=== PATIENT | female | born 1945 | race Caucasian/White ===

== ENCOUNTER 2021-03-11 09:51 | Outpatient (REF) | payer MEDICARE, OTHER, SELFPAY ==
--- NOTE | ~2021-03-11 | MM_ITS ---
EXAMINATION: BONE DENSITOMETRY CLINICAL INDICATION: Screening for osteoporosis. COMPARISON: Previous BD dated 02/28/2019 and baseline BD dated 03/12/2008. TECHNIQUE: Using a [employer] DXA System (software version: 13.1) manufactured by [employer], dual-energy x-ray absorptiometry was performed of the lumbar spine and left hip. The images are of good technical quality. Summary results are attached. FINDINGS: AP SPINE L1-L4: Current: BMD 0.920 g/cm2, Z-score -0.2, T-score -2.2, osteopenia, 1.2% decrease from previous, 8.8% decrease from baseline (<5% change is not significant). Prior: BMD 0.931 g/cm2. Baseline: BMD 1.009 g/cm2. LEFT FEMUR, NECK: Current: BMD 0.730 g/cm2, Z-score -0.1, T-score -2.2, osteopenia. Prior: BMD 0.731 g/cm2. Baseline: BMD 0.748 g/cm2. LEFT FEMUR, TOTAL: Current: BMD 0.752 g/cm2, Z-score -0.1, T-score -2.0, osteopenia, 4.1% decrease from previous, 10.9% decrease from baseline (<5% change is not significant). Prior: BMD 0.784 g/cm2. Baseline: BMD 0.844 g/cm2. IDENTIFIED RISK FACTORS: Menopause, family history (parental hip fracture), history of fracture (adult). HISTORY OF FRACTURE: Other. MEDICATIONS: ERT/SERMS. MM/XR DEXA axial skeleton IMPRESSION: 1. DIAGNOSIS: Osteopenia based on the lowest T-score value of -2.2 in the femoral neck and lumbar spine applying World Health Organization criteria. 2. 10-YEAR FRACTURE RISK PREDICTION, FRAX: Major osteoporotic fracture (clinical spine, forearm, hip or shoulder) 36.7%. Hip fracture 23.1%. 3. Treatment Recommendations: NOF guidelines recommend consideration for treatment in postmenopausal women and men age 50 and older presenting with the following: -A hip or vertebral (clinical or morphometric) fracture. -T-score less than or equal to -2.5 at the femoral neck or spine after appropriate evaluation to exclude secondary causes. -Low bone mass at the hip or spine and a 10-year fracture probability by FRAX of greater than or equal to 3% for hip fracture or greater than or equal to 20% for major osteoporotic fracture based on the [place] adapted WHO algorithm. 4. Other Recommendations: All treatment decisions require clinical judgment and consideration of individual patient factors, including patient preferences, comorbidities, previous drug use, risk factors not captured in the FRAX model (e.g. frailty, falls, vitamin D deficiency, increased bone turnover, interval significant decline in bone density) and possible under or overestimation of fracture risk by FRAX. Additional medical evaluation for secondary cause of low bone mineral density may be appropriate. FUTURE SCAN RECOMMENDATION: People with diagnosed cases of osteoporosis or at high risk for fracture should have regular bone mineral density tests. For patients eligible for Medicare, routine testing is allowed once every 2 years. The testing frequency can be increased to one year for patients who have rapidly progressing disease, those who are receiving or discontinuing medical therapy to restore bone mass, or have additional risk factors.
--- NOTE | ~2021-03-11 | MM_ITS ---
EXAMINATION: MM SCREENING DIGITAL BREAST TOMOSYNTHESIS, BILATERAL CLINICAL INFORMATION: Left lumpectomy for breast cancer, 2007. Due for yearly. COMPARISON: Mammography: 02/28/2019, 02/21/2018, 02/16/2017 TECHNIQUE: Digital breast tomosynthesis is performed in both the craniocaudal and mediolateral oblique views along with computer-aided detection (CAD). Synthesized 2D images are generated from the tomosynthesis. Additional left MLO view is provided. FINDINGS: The breasts are heterogeneously dense, which may obscure small masses (ACR BI-RADS breast composition Category c). Parenchymal pattern is similar to prior studies. There are post therapy changes again noted on the left with mild reduced breast size, stable scarring, and axillary clips, and some dystrophic and punctate calcifications. Neither breast shows interval mass or architectural abnormality. No abnormal calcifications. There is a small stable nodule posterior central right breast on MLO view similar to prior studies, possibly intraparenchymal node. No significant changes. MM/MM tomosynthesis screening BI IMPRESSION: No mammographic evidence of malignancy. ASSESSMENT: BI-RADS 2: Benign RECOMMENDATION: Routine annual mammography screening. This patient's information was entered into a reminder system with a target due date for their next mammogram.
== END 2021-03-11 09:52 | disposition home or self-care (01) ==
LOC: HO.MAMMO 09:51
PROVIDERS: Visit Provider Internal Medicine
DX: Z12.31 Encounter for screening mammogram for malignant neoplasm of breast (principal); Z13.820 Encounter for screening for osteoporosis; M85.80 Other specified disorders of bone density and structure, unspecified site; Z78.0 Asymptomatic menopausal state; Z87.81 Personal history of (healed) traumatic fracture; Z79.899 Other long term (current) drug therapy
CPT/HCPCS: 77063; 77067; 77080

== ENCOUNTER 2022-03-17 10:17 | Outpatient (REF) | payer MEDICARE, SELFPAY ==
--- NOTE | ~2022-03-17 | MM_ITS ---
EXAMINATION: MM SCREENING DIGITAL BREAST TOMOSYNTHESIS, BILATERAL CLINICAL INFORMATION: Screening. Asymptomatic. COMPARISON: Mammography: March 11, 2021 and studies dating back to December 22, 2013 TECHNIQUE: Digital breast tomosynthesis is performed in both the craniocaudal and mediolateral oblique views along with computer-aided detection (CAD). Synthesized 2D images are generated from the tomosynthesis. Left breast exaggerated craniocaudal view also performed. FINDINGS: The breasts are heterogeneously dense, which may obscure small masses (ACR BI-RADS breast composition Category c). There are no new significant masses, abnormal calcifications, or other abnormalities. Patient status post left lumpectomy with associated postsurgical change. MM/MM tomosynthesis screening BI IMPRESSION: No significant changes from prior exam. ASSESSMENT: BI-RADS 2: Benign RECOMMENDATION: Routine annual mammography screening. This patient's information was entered into a reminder system with a target due date for their next mammogram.
== END 2022-03-17 10:18 | disposition home or self-care (01) ==
LOC: HO.MAMMO 10:17
PROVIDERS: PCP Internal Medicine; Visit Provider Internal Medicine
DX: Z12.31 Encounter for screening mammogram for malignant neoplasm of breast (principal)
CPT/HCPCS: 77063; 77067

== ENCOUNTER → 2023-01-04 14:06 | Outpatient (BNV) | payer MEDICARE, SELFPAY | PROVIDERS: PCP Internal Medicine; Visit Provider Internal Medicine Medical Oncology | DX: C50.912 Malignant neoplasm of unspecified site of left female breast (principal); D45 Polycythemia vera; R22.41 Localized swelling, mass and lump, right lower limb | CPT/HCPCS: 99204; 99213 ==

== ENCOUNTER 2023-01-04 15:09 | Outpatient (REF) | payer MEDICARE, SELFPAY ==
--- NOTE | ~2023-01-04 | US_ITS ---
EXAMINATION: US VENOUS ULTRASOUND WITH DOPPLER LOWER EXTREMITY, RIGHT CLINICAL INFORMATION: Right leg DVT COMPARISON: None available. TECHNIQUE: Ultrasound of the deep veins is performed from the hip to the calf with compression sonography and color and pulse Doppler assessment. Spectral analysis with color-flow imaging is performed. FINDINGS: There is normal venous compression and respiratory variation and augmented flow. The visualized common femoral vein, superficial femoral vein, profunda femoral vein, popliteal vein, and the trifurcation region shows no evidence of deep venous thrombosis. Incidentally noted is a 1 x 1.5 x 1 cm avascular well-circumscribed anechoic structure within the popliteal fossa, likely a popliteal cyst. US/US venous duplex LE RT IMPRESSION: No DVT demonstrated in the right lower extremity. Likely small popliteal cyst measuring 1.5 x 1.0 x 1.0 cm.
== END 2023-01-04 15:10 | disposition home or self-care (01) ==
LOC: HO.US 15:09
PROVIDERS: PCP Internal Medicine; Visit Provider Internal Medicine Medical Oncology
DX: I82.401 Acute embolism and thrombosis of unspecified deep veins of right lower extremity (principal)
CPT/HCPCS: 93971

== ENCOUNTER 2023-02-04 11:00 | Outpatient (REF) | payer MEDICARE, SELFPAY ==
--- NOTE | ~2023-02-04 | XR_ITS ---
EXAM: XR knee standing BI, XR knee RT 2V DATE: 02/04/2023 1:10 PM [id number] DICTATED: 02/11/2023 10:20 AM INTERPRETATION LOCATION: Main [place] CLINICAL INDICATION: 77 years old Female with Reason for Exam M25.569 - Pain in unspecified knee COMPARISON: None available TECHNIQUE: AP bilateral weightbearing and lateral, sunrise views of of the right knee FINDINGS: Weightbearing views revealed mild bilateral narrowing of the lateral compartments of knee joints and medial compartment of left knee joint. Lateral view of right knee demonstrate mild suprapatellar fullness and patellar spurring. Findings are consistent with joint effusion . XR/XR knee standing BI IMPRESSION: Mild degenerative changes of the right knee joint with joint effusion.
--- NOTE | ~2023-02-04 | XR_ITS ---
EXAM: XR knee standing BI, XR knee RT 2V DATE: 02/04/2023 1:10 PM [id number] DICTATED: 02/11/2023 10:20 AM INTERPRETATION LOCATION: [facility] [place] CLINICAL INDICATION: 77 years old Female with Reason for Exam M25.569 - Pain in unspecified knee COMPARISON: None available TECHNIQUE: AP bilateral weightbearing and lateral, sunrise views of of the right knee FINDINGS: Weightbearing views revealed mild bilateral narrowing of the lateral compartments of knee joints and medial compartment of left knee joint. Lateral view of right knee demonstrate mild suprapatellar fullness and patellar spurring. Findings are consistent with joint effusion . XR/XR knee RT 2V IMPRESSION: Mild degenerative changes of the right knee joint with joint effusion.
== END 2023-02-04 11:01 | disposition home or self-care (01) ==
LOC: HO.HOSX 11:00
PROVIDERS: Visit Provider Orthopaedic Surgery
DX: M25.561 Pain in right knee (principal); R60.0 Localized edema; M71.20 Synovial cyst of popliteal space [Baker], unspecified knee
CPT/HCPCS: 73560; 73565; 99202

== ENCOUNTER 2023-02-04 13:09 | Outpatient (AMB) | payer MEDICARE, SELFPAY ==
[2023-02-04 13:19] VITALS: BMI 28.3
--- NOTE | 2023-02-04 13:19 | MHC.OFFVIS ---
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 Patient reports that she has had ongoing pain in the right knee since the beginning of November. She woke up one morning with her right great toe throbbing and was seen with an emergency appt with Dr. Johns who gave ABX due to infection and ulceration. She will be following up with him in regards to this. She reports that she was improving after about 2 weeks of abx until she notices that she had significant swelling , she was given compression stocking and advised to rest. She was then sent for an US to rule out DVT, negative DVT but a bakers cyst was found. Currently she finds pain while walking but has gotten better over time. 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 She complains of pain and swelling in her right knee, which has been present for the last few weeks. She says her compression stockings are uncomfortable around her knee. She says her swelling began after resting with her leg elevated due to her toe infection. She says she remains active with swimming and water exercises. She was sent for an US which ruled out DVT. She was seen in the ED at the beginning of November for an infection to her right great toe. She was seen by Dr. Johns and given Abx, and is following with him concerning her foot. She says she has a Hx of a meniscus repair surgery to her right knee a few years ago, at an outside clinic. She says she has Polycythemia?[facility] Medical History Breast CA Leg swelling Surgical History History of lumpectomy Family History Maternal Aunt Breast cancer Maternal Aunt Bone cancer Breast cancer Social History Household Members: Spouse Patient Tobacco Use Status: Never used Tobacco service: No Current occupational status: retired Review of Systems Const All systems reviewed & are unremarkable except as noted in HPI and below Physical Exam Vital Signs: BMI result Body Mass Index 28.3 Const General: no acute distress, alert and awake Orientation/consciousness: patient oriented x3 HEENT Head: Yes normocephalic and Yes atraumatic Eyes EOM: EOMs intact bilaterally Resp Effort & Inspection: normal respiratory effort and able to speak in complete sentences Cardio Jugular venous distension: no JVD Skin General skin exam: turgor normal Rashes: no rashes Neuro General: patient oriented x3 Extrem Other: Right Le+ pitting edema RLE Mild discomfort No erythema Small coronado's cyst Full ROM No JLT Psych Appearance: grossly normal Affect: normal affect Attitude: cooperative Results Reviewed Results Reviewed: I personally reviewed relevant radiographs. Mild bilateral knee OA Assessment & Plan Assessment & Plan (1) Leg edema, right: Code(s): R60.0 - Localized edema Plan: This is a 77 year old woman with right leg edema, negatiuve for DVT. She has pain and swelling in her knee for ~2 months. She has been wearing compression stockings, which helps her somewhat, and has tried to remain active with walking, swimming, and water exercises. I discussed her diagnosis and treatment options. No knee intervention warranted. I recommend she continue to be as active as tolerated, and resume wearing her compression stockings. She can follow up prn. Plan Scribed for Anatoly Bennett MD by Gustavo Miller, medical doctor md, on 02/04/23 at 1:30 PM, EST. Orders: Orders XR knee RT 2V Today M25.569 - Pain in unspecified knee XR knee standing BI Today M25.569 - Pain in unspecified knee Coding Level of Care Code New Pt Level 3 (22399) Diagnoses Leg edema, right R60.0
== END 2023-02-04 16:29 | disposition home or self-care (01) ==
PROVIDERS: PCP Internal Medicine; Visit Provider Orthopaedic Surgery
DX: M25.561 Pain in right knee (principal); R60.0 Localized edema
CPT/HCPCS: 99203

== ENCOUNTER 2023-03-19 09:27 | Outpatient (REF) | payer MEDICARE, SELFPAY ==
--- NOTE | ~2023-03-19 | MM_ITS ---
EXAMINATION: BONE DENSITOMETRY CLINICAL INDICATION: Asymptomatic menopausal state. COMPARISON: Previous BD dated 03/11/2021 and baseline BD dated 03/12/2008. TECHNIQUE: Using a [employer] DXA System (software version: 13.1) manufactured by [employer], dual-energy x-ray absorptiometry was performed of the lumbar spine and left hip. The images are of good technical quality. Summary results are attached. FINDINGS: LEFT FEMUR, NECK: Current: BMD 0.734 g/cm2, Z-score -0.2, T-score -2.2, osteopenia. Prior: BMD 0.730 g/cm2. Baseline: BMD 0.748 g/cm2. LEFT FEMUR, TOTAL: Current: BMD 0.747 g/cm2, Z-score -0.2, T-score -2.1, osteopenia, 0.7% decrease from previous, 11.5% decrease from baseline (<5% change is not significant). Prior: BMD 0.752 g/cm2. Baseline: BMD 0.844 g/cm2. AP SPINE L1-L4: Current: BMD 0.875 g/cm2, Z-score -0.7, T-score -2.5, osteoporosis, 4.9% decrease from previous, 13.3% decrease from baseline (<5% change is not significant). Prior: BMD 0.920 g/cm2. Baseline: BMD 1.009 g/cm2. IDENTIFIED RISK FACTORS: Menopause, family history (parental hip fracture), history of fracture (adult). HISTORY OF FRACTURE: Other. MEDICATIONS: Calcium supplements or multivitamin, vitamin D. MM/XR DEXA axial skeleton IMPRESSION: 1. DIAGNOSIS: Osteoporosis based on the lowest T-score value of -2.5 in the lumbar spine applying World Health Organization criteria. 2. 10-YEAR FRACTURE RISK PREDICTION, FRAX: According to the guidelines, FRAX calculation should only be performed on patients in the osteopenia bone density category. Therefore, FRAX was not performed on this patient. 3. Treatment Recommendations: NOF guidelines recommend consideration for treatment in postmenopausal women and men age 50 and older presenting with the following: -A hip or vertebral (clinical or morphometric) fracture. -T-score less than or equal to -2.5 at the femoral neck or spine after appropriate evaluation to exclude secondary causes. -Low bone mass at the hip or spine and a 10-year fracture probability by FRAX of greater than or equal to 3% for hip fracture or greater than or equal to 20% for major osteoporotic fracture based on the [place] adapted WHO algorithm. 4. Other Recommendations: All treatment decisions require clinical judgment and consideration of individual patient factors, including patient preferences, comorbidities, previous drug use, risk factors not captured in the FRAX model (e.g. frailty, falls, vitamin D deficiency, increased bone turnover, interval significant decline in bone density) and possible under or overestimation of fracture risk by FRAX. Additional medical evaluation for secondary cause of low bone mineral density may be appropriate. FUTURE SCAN RECOMMENDATION: People with diagnosed cases of osteoporosis or at high risk for fracture should have regular bone mineral density tests. For patients eligible for Medicare, routine testing is allowed once every 2 years. The testing frequency can be increased to one year for patients who have rapidly progressing disease, those who are receiving or discontinuing medical therapy to restore bone mass, or have additional risk factors.
--- NOTE | ~2023-03-19 | MM_ITS ---
EXAMINATION: MM SCREENING DIGITAL BREAST TOMOSYNTHESIS, BILATERAL CLINICAL INFORMATION: Screening. Asymptomatic. COMPARISON: Mammography: This study is compared with prior exams dating back to 2017. TECHNIQUE: Digital breast tomosynthesis is performed in both the craniocaudal and mediolateral oblique views along with computer-aided detection (CAD). Synthesized 2D images are generated from the tomosynthesis. FINDINGS: The breasts are heterogeneously dense, which may obscure small masses (ACR BI-RADS breast composition Category c). There are no significant masses, abnormal calcifications, or other abnormalities. There are postsurgical changes of the upper outer quadrant and unchanged, benign calcifications in the superior aspect of the left breast. These findings are related to prior breast cancer treatment. MM/MM tomosynthesis screening BI IMPRESSION: No mammographic evidence of malignancy. ASSESSMENT: BI-RADS BI-RADS 2 - Benign Findings RECOMMENDATION: Routine annual mammography screening. 1 year F/U This examination should not preclude the clinical evaluation of a suspicious palpable abnormality. This patient's information was entered into a reminder system with a target due date for their next mammogram.
== END 2023-03-19 09:28 | disposition home or self-care (01) ==
LOC: HO.MAMMO 09:27
PROVIDERS: PCP Internal Medicine; Visit Provider Internal Medicine
DX: Z12.31 Encounter for screening mammogram for malignant neoplasm of breast (principal); Z13.820 Encounter for screening for osteoporosis; Z78.0 Asymptomatic menopausal state
CPT/HCPCS: 77063; 77067; 77080

== ENCOUNTER → 2023-03-19 09:45 | Outpatient (BNV) | payer MEDICARE, SELFPAY | PROVIDERS: PCP Internal Medicine; Visit Provider Radiology Diagnostic Radiology | DX: N95.1 Menopausal and female climacteric states (principal) | CPT/HCPCS: 77063; 77067; 77080 ==

== ENCOUNTER 2023-04-15 10:12 | Outpatient (REF) | payer MEDICARE, SELFPAY ==
[2023-04-15 13:21] LABS: MANUAL DIFF FLAG NO
[2023-04-15 13:26] LABS: Basophils Percent Auto 0.5 % (0-2); Eosinophils Absolute Auto 0.2 X10*3/uL (0.0-0.4); Eosinophils Percent Auto 2.5 % (0-4); Hematocrit 41.1 % (37.0-47.0); Hemoglobin 13.3 g/dl (12.0-16.0); Imm Gran Abs Auto 0.02 X10*3/uL (0.00-0.03); Imm Gran Pct Auto 0.3 % (0.0-0.4); Lymphocytes Absolute Auto 1.3 X10*3/uL (1.2-4.9); Lymphocytes Percent Auto 20.3 % (20-40); Mean Corpuscular HGB Conc 32.4 g/dl (31.0-35.0); Mean Corpuscular Hemoglobin 29.2 pg (27.0-33.0); Mean Corpuscular Volume 90.3 fL (80.0-98.0); Monocytes Absolute Auto 0.5 X10*3/uL (0.1-1.2); Neutrophils Absolute Auto 4.5 x10*3/uL (2.0-8.3); Neutrophils Percent Auto 69.4 % (45-73); Platelet Count 276 X10*3/uL (160-400); Red Blood Count 4.55 X10*6/uL (4.20-5.50); Red Cell Distribution Width 12.6 % (11.0-16.0); White Blood Count 6.5 X10*3/uL (4.8-10.8)
[2023-04-15 14:01] LABS: Alanine Aminotransferase 24 U/L (0-31); Alkaline Phosphatase 111 U/L (39-117); Anion Gap 14 (12-20); Aspartate Amino Transferase 30 U/L (5-31); Bilirubin Total 0.6 mg/dL (0.0-1.0); Blood Urea Nitrogen 14 mg/dL (9-16); Calcium 9.5 mg/dL (8.4-10.2); Carbon Dioxide 25 mmol/L (22-29); Chloride 107 mmol/L (96-108); Estimated Glomerular Filt Rate > 60; Glucose Random 93 mg/dL (60-115); Potassium 4.3 mmol/L (3.3-5.1); Sodium 142 mmol/L (135-145)
[2023-04-17 08:39] LABS: CA 27.29 53 U/mL (<38)
== END 2023-04-15 10:13 | disposition home or self-care (01) ==
LOC: HO.HMGCLDS 10:12
PROVIDERS: PCP Internal Medicine; Visit Provider Internal Medicine Medical Oncology
DX: C50.919 Malignant neoplasm of unspecified site of unspecified female breast (principal)
CPT/HCPCS: 36415; 80053; 85025; 86300

== ENCOUNTER 2023-05-12 13:28 | Outpatient (REF) | payer MEDICARE, SELFPAY ==
--- NOTE | ~2023-05-12 | XR_ITS ---
EXAMINATION: XR LUMBOSACRAL SPINE CLINICAL INFORMATION: Reason for Exam LOW BACK PAIN RADIATING TO LEFT LEG. COMPARISON: None TECHNIQUE: 3 views of the lumbar spine FINDINGS: 5 nonrib-bearing lumbar-type vertebral bodies. Vertebral body heights are maintained. Alignment is maintained. Mild multilevel degenerative disc disease with loss of disc space height and facet arthropathy. Atherosclerotic calcifications of the abdominal aorta. XR/XR lumbar spine 2-3V IMPRESSION: Mild multilevel degenerative disc disease with loss of disc space height and facet arthropathy.
== END 2023-05-12 13:29 | disposition home or self-care (01) ==
LOC: HO.HMGCX 13:28
PROVIDERS: PCP Internal Medicine; Visit Provider Internal Medicine
DX: M54.50 Low back pain, unspecified (principal)
CPT/HCPCS: 72100

== ENCOUNTER 2023-09-21 14:43 | Outpatient (AMB) | payer MEDICARE, SELFPAY ==
[2023-09-21 14:50] VITALS: BP 140/68; PULSE 84; BMI 30.8
--- NOTE | 2023-09-21 14:50 | MHC.OFFVIS ---
Intake Vital Signs 09/21/23 14:50 Height 5 ft 1 in Weight 163 lb BMI 30.8 BP 140/68 H Blood Pressure Location Rt brachial Position Sitting Pulse 84 Intake Visit Reasons: Lg abscess above lip, possible I&D Intake Note: Patient here for non healing lesion on Lt upper lip. Started off as a small red pimple. Irritated for 4-5 days. No hx of skin ca. 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 Accompanied by: Self / Same As Patient Allergies No Known Allergies Allergy (Unverified 09/21/23 14:51) Medication List - Last Reconciled 09/21/23 by Topher Mariscal MD amlodipine 10 mg PO DAILY aspirin 81 mg PO DAILY atorvastatin 80 mg PO DAILY calcium 26-vit D3-magnesium 15 167 mg calcium- 1.67 mcg-83 mg 167 caps PO DAILY diazepam (Valium) 5 mg PO BEDTIME PRN loratadine (Claritin) 10 mg PO DAILY PRN oxybutynin chloride ER 10 mg PO DAILY HPI HPI Comments History of Present Illness Details Patient presents with a 5 day history of what was described as a pimple to a necrotic inflamed area involving her left upper lip. She has never had any problem lesion here before. She has no history of any skin cancers. Patient was seen by her medical doctor and presents here for further evaluation. Chart was reviewed and patient evaluated [facility] Medical History Breast CA Leg swelling Surgical History History of lumpectomy Family History Maternal Aunt Breast cancer Maternal Aunt Bone cancer Breast cancer Social History Household Members: Spouse Patient Tobacco Use Status: Never used Tobacco service: No Current occupational status: retired Physical Exam Vital Signs: Last Vital Signs Pulse 84 09/21/23 14:50 BP 140/68 H 09/21/23 14:50 BMI result Body Mass Index 30.8 Neck Other: Patient has approximately 2 x 1 cm eschar Bard carbuncle type process involving her left mid upper lip. Intraoral exam demonstrated no obvious pathology. No obvious cervical periclavicular adenopathy demonstrated. Assessment & Plan Assessment & Plan (1) Carbuncle and furuncle of face: Code(s): L02.03 - Carbuncle of face; L02.02 - Furuncle of face Plan The present time, we will treat the patient conservatively as this is according to her uneventfully 5 days. She has been given local instructions including bacitracin, she will be given script for antibiotics, analgesics suggestions, local wound care, and will see me in few days time for follow-up or p.r.n.. Should this process progress or worsen during this interim, she has been instructed to contact the office or go to the ER. Medications: New cephalexin 500 mg PO TID 30 caps 0RF Coding Level of Care Code New Pt Level 4 (57484) Diagnoses Carbuncle and furuncle of face L02.03; L02.02
== END 2023-09-21 15:01 | disposition home or self-care (01) ==
PROVIDERS: PCP Internal Medicine; Referring Provider Internal Medicine; Visit Provider Surgery
DX: L02.03 Carbuncle of face (principal); L02.02 Furuncle of face
CPT/HCPCS: 99204

== ENCOUNTER → 2023-09-21 14:43 | Outpatient (BNVA) | payer MEDICARE, SELFPAY | PROVIDERS: PCP Internal Medicine; Referring Provider Internal Medicine; Visit Provider Surgery | DX: L02.03 Carbuncle of face (principal); L02.02 Furuncle of face | CPT/HCPCS: 99202 ==

== ENCOUNTER 2023-09-27 08:35 | Outpatient (AMB) | payer MEDICARE, SELFPAY ==
--- NOTE | 2023-09-27 08:41 | A.OFFVIS_ITS ---
Intake Vital Signs 09/27/23 08:45 Height 5 ft 1 in Weight 161 lb BMI 30.4 BP 118/66 Blood Pressure Location Rt brachial Position Sitting Pulse 79 Intake Visit Reasons: 1wk f/u lesion Lt upper lip Intake Note: Patient here for 1wk f/u non healing lesion on Lt upper lip. Patient using Bacitracin samples. Patient c/o: scab, painful. No hx of skin ca.Has 3-4 days of cephalexin course. 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 She has completing her antibiotic course. He has been undergoing bacitracin to the wound. She has had some occasional drainage of clear fluid but no pus. [facility] Medical History Breast CA Leg swelling Surgical History History of lumpectomy Family History Maternal Aunt Breast cancer Maternal Aunt Bone cancer Breast cancer Social History Household Members: Spouse Patient Tobacco Use Status: Never used Tobacco service: No Current occupational status: retired Physical Exam Vital Signs: Last Vital Signs Pulse 79 09/27/23 08:45 BP 118/66 09/27/23 08:45 BMI result Body Mass Index 30.4 HEENT Other: Wound is essentially status quo. My concern is that this is an underlying neoplastic process, basal cell carcinoma. Assessment & Plan Assessment & Plan (1) Carbuncle and furuncle of face: Code(s): L02.03 - Carbuncle of face; L02.02 - Furuncle of face Plan Current plan because of the anatomic location is to arrange for plastic surgical evaluation for further evaluation and possible excision. Arrangements will be made for this. All questions answered. Coding Level of Care Code Est Pt Level 4 (44418) Diagnoses Carbuncle and furuncle of face L02.03; L02.02
[2023-09-27 08:45] VITALS: BP 118/66; PULSE 79; BMI 30.4
== END 2023-09-27 08:59 | disposition home or self-care (01) ==
PROVIDERS: PCP Internal Medicine; Visit Provider Surgery
DX: L02.03 Carbuncle of face (principal); L02.02 Furuncle of face
CPT/HCPCS: 99214

== ENCOUNTER → 2023-09-27 08:35 | Outpatient (BNVA) | payer MEDICARE, SELFPAY | PROVIDERS: PCP Internal Medicine; Visit Provider Surgery | DX: L02.03 Carbuncle of face (principal); L02.02 Furuncle of face | CPT/HCPCS: 99212 ==

== ENCOUNTER 2024-03-24 09:23 | Outpatient (REF) | payer MEDICARE, SELFPAY ==
--- NOTE | ~2024-03-24 | MM_ITS ---
EXAMINATION: MM SCREENING DIGITAL BREAST TOMOSYNTHESIS, BILATERAL CLINICAL INFORMATION: Screening. Asymptomatic. COMPARISON: Mammography: Comparison is made with available prior examinations. TECHNIQUE: Digital breast tomosynthesis is performed in both the craniocaudal and mediolateral oblique views along with computer-aided detection (CAD). Synthesized 2D images are generated from the tomosynthesis. FINDINGS: The breasts are heterogeneously dense, which may obscure small masses (ACR BI-RADS breast composition Category c). Left postsurgical changes are stable. There are no significant masses, abnormal calcifications, or other abnormalities. MM/MM tomosynthesis screening BI IMPRESSION: No mammographic evidence of malignancy. ASSESSMENT: BI-RADS BI-RADS 2 - Benign Findings RECOMMENDATION: Routine annual mammography screening. 1 year F/U This examination should not preclude the clinical evaluation of a suspicious palpable abnormality. This patient's information was entered into a reminder system with a target due date for their next mammogram. Electronically signed by: Jo Ann Main DO 04/06/2024 06:46 PM EDT
== END 2024-03-24 09:24 | disposition home or self-care (01) ==
LOC: HO.MAMMO 09:23
PROVIDERS: PCP Internal Medicine; Visit Provider Internal Medicine
DX: Z12.31 Encounter for screening mammogram for malignant neoplasm of breast (principal)
CPT/HCPCS: 77063; 77067

== ENCOUNTER → 2024-03-24 09:45 | Outpatient (BNV) | payer MEDICARE, SELFPAY | PROVIDERS: PCP Internal Medicine; Visit Provider Internal Medicine | DX: Z12.31 Encounter for screening mammogram for malignant neoplasm of breast (principal) | CPT/HCPCS: 77063; 77067 ==

== ENCOUNTER 2024-11-22 09:02 | Outpatient (REF) | payer MEDICARE, SELFPAY ==
--- OUTSIDE RECORDS SUMMARY | 2024-11-22 09:33 | XMS_ITS | Patient Health Record ---
[facility] [place] Address [address] [facility] [place] [address] Care Team Providers Care Software Systems Analyst Name Role Phone Nikko Perrin MD Primary Care Provider Unavailab Nasreen Muniz Unavailable [phone] Asher Zimmerman Unavailable [phone] Allergies No Known Allergies Reason For Referral No Information Medications Medication SIG (Take, Route, Frequency, Duration) Notes Start Date End Date Status Ciclopirox Olamine 0.77 % 1 application to affected area Externally Twice a day to effected areas on feet for 30 days Active Tolterodine Tartrate once a day Active Flonase PRN Active Atorvastatin Calcium 80 MG 1 tablet Orally Once a day for 30 day(s) Active Aspirin 81 MG 1 tablet Orally Once a day Active Valium 5 MG 1 tablet as needed Orally Once a day Active Tussin Cough PRN Active Ammonium Lactate 12 % 1 application Externally to affected areas of dry skin to feet except for between the toes Twice a day for 30 days Active oxyBUTYnin Chloride ER 10 MG 1 tablet Orally Once a day for 30 day(s) Active Social History Tobacco Use: Social History Observation Description Date Details (start date - stop date) Never Smoker NA - NA Tobacco use other than smoking: Question Answer Notes Are you an other tobacco user? No Tobacco Control (Standard) Question Answer Notes Tobacco use: Nonsmoker Additional Findings: Tobacco non-user Current no nsmoker AUDIT-C (Standard) Question Answer Notes Did you have a drink containing alcohol in the p ast year? No Points 0 Interpretation Negative Vital Signs Blood pressure diastolic 80 mm Hg 11/09/2024 Height 5 ft 2 in in 11/09/2024 Blood pressure systolic 120 mm Hg 11/09/2024 Weight 156 lbs 11/09/2024 BMI 28.53 kg/m2 11/09/2024 Procedures Procedure Date Ordered Date Performed Result Body Sit e 56666-WWAPCSE NAIL, 6 OR MORE 07/05/2024 N/A 53852-UISOVFZ NAIL, OR MORE 11/09/2024 N/A Encounters Encounter Location Date Provider Diagnosis [address] [address] 01/06/2024 Asher Zimmerman Pain in right toe(s) M79.674 ; Hallux valgus (acquired), right foot M20.11 ; Other hammer toe(s) (acquired), right foot M20.41 ; Localized edema R60.0 ; Tinea unguium B35.1 ; Pain in left toe(s) M79.675 ; Tinea pedis B35.3 ; Tailor's bunionette, left M21.622 and Tailor's bunionette, right M21.[address] [address] 03/30/2024 Asher Zimmerman Pain in right toe(s) M79.674 ; Hallux valgus (acquired), right foot M20.11 ; Other hammer toe(s) (acquired), right foot M20.41 ; Localized edema R60.0 ; Tinea unguium B35.1 ; Pain in left toe(s) M79.675 ; Tinea pedis B35.3 ; Tailor's bunionette, left M21.622 and Tailor's bunionette, right M21.[address] [address] 07/05/2024 Nasreen Levy Xerosis of skin L85.3 ; Tinea unguium B35.1 ; Pain in right toe(s) M79.674 and Pain in left toe(s) M79.[address] [address] 11/09/2024 Nasreen Levy Pain in right toe(s) M79.674 ; Onychomycosis B35.1 and Pain in left toe(s) M79.675 Assessments Encounter Date Diagnosis (ICD Code) Assessment Notes Treatment Notes Treatment Clinical Notes Section Notes 01/06/2024 Hallux valgus (acquired), right foot (ICD-10 - M20.11) 01/06/2024 Pain in right toe(s) (ICD-10 - M79.674) 03/30/2024 Hallux valgus (acquired), right foot (ICD-10 - M20.11) 03/30/2024 Pain in right toe(s) (ICD-10 - M79.674) 07/05/2024 Xerosis of skin (ICD-10 - L85.3) 11/09/2024 Pain in right toe(s) (ICD-10 - M79.674) 11/09/2024 Onychomycosis (ICD-10 - B35.1) 07/05/2024 Tinea unguium (ICD-10 - B35.1) 03/30/2024 Other hammer toe(s) (acquired), right foot (ICD-10 - M20.41) 01/06/2024 Other hammer toe(s) (acquired), right foot (ICD-10 - M20.41) 01/06/2024 Localized edema (ICD-10 - R60.0) 07/05/2024 Pain in right toe(s) (ICD-10 - M79.674) 11/09/2024 Pain in left toe(s) (ICD-10 - M79.675) 03/30/2024 Localized edema (ICD-10 - R60.0) 07/05/2024 Pain in left toe(s) (ICD-10 - M79.675) 03/30/2024 Tinea unguium (ICD-10 - B35.1) 01/06/2024 Tinea unguium (ICD-10 - B35.1) 01/06/2024 Pain in left toe(s) (ICD-10 - M79.675) 03/30/2024 Pain in left toe(s) (ICD-10 - M79.675) 03/30/2024 Tinea pedis (ICD-10 - B35.3) 01/06/2024 Tinea pedis (ICD-10 - B35.3) 01/06/2024 Tailor's bunionette, left (ICD-10 - M21.622) 03/30/2024 Tailor's bunionette, left (ICD-10 - M21.622) 03/30/2024 Tailor's bunionette, right (ICD-10 - M21.621) 01/06/2024 Tailor's bunionette, right (ICD-10 - M21.621) Plan Of Treatment Pending Test Test Name Order Date X ray : Foot, right 3V 11/24/2022 61027-KAGGNSA NAIL, 6 OR MORE 07/05/2024 89991-[id number] NAIL, 6 OR MORE 11/09/2024 94823-[id number] SKIN/TISSUE 11/24/2022 Next Appt Details Provider Name:Nasreen Nunn tarik, 02/01/2025 03:30:00 PM, [address] [place], [address], Insurance Providers Payer Name Payer Address Payer Phone Subscriber Number Group Number Insured Name Patient Relationship to Insured Coverage Start Date Coverage End Date [employer] Medicare [id number] [address] [address] [place] [address] [phone] [id number] [facility] Self - patient is the insured Medical (General) History Medical History History ICD Code Arthritis Cholesterol raynauds disease Poor circulation Measles Chicken pox Polycythemia vera Surgical History Surgery Date(Month/Year) tonsillectomy 1949 Breast Surgery - left lumpectomy
--- OUTSIDE RECORDS SUMMARY | 2024-11-22 09:33 | XMS_ITS ---
Author Organization [facility] danish [place] Address [address] [facility] [place] [address] Care Team Providers Care Consulting Intern Name Role Phone Nikko Perrin MD Primary Care Provider Nasreen Nuno Unavailable [phone] Allergies No Known Allergies REASON FOR VISIT Painful nail(s) aggravated by shoes causing difficulty standing/walking Medications Medication SIG (Take, Route, Frequency, Duration) Notes Start Date End Date Status Ciclopirox Olamine 0.77 % 1 application to affected area Externally Twice a day to effected areas on feet for 30 days Active Flonase PRN Active Valium 5 MG 1 tablet as needed Orally Once a day Active Ammonium Lactate 12 % 1 application Externally to affected areas of dry skin to feet except for between the toes Twice a day for 30 days Active oxyBUTYnin Chloride ER 10 MG 1 tablet Orally Once a day for 30 day(s) Active Tolterodine Tartrate once a day Active Atorvastatin Calcium 80 MG 1 tablet Orally Once a day for 30 day(s) Active Aspirin 81 MG 1 tablet Orally Once a day Active Tussin Cough PRN Active Social History Tobacco Use: Social History [...] No Points 0 Interpretation Negative Vital Signs Height 5 ft 2 in in 11/09/2024 Weight 156 lbs 11/09/2024 BMI 28.53 kg/m2 11/09/2024 Blood pressure systolic 120 mm Hg 11/10/19 25 Blood pressure diastolic 80 mm Hg 025 Procedures Procedure Date Ordered Date Performed Result Body Sit e 64372-QRGEGBB NAIL, 6 OR MORE 11/09/2024 N/A Encounters Encounter Location Date Provider Diagnosis [facility] [address] [address] 11/09/2024 Nasreen Levy Pain in right toe(s) M79.674 ; Onychomycosis B35.1 and Pain in left toe(s) M79.675 Assessments Encounter Date Diagnosis (ICD Code) Assessment Notes Treatment Notes Treatment Clinical Notes Section Notes 11/09/2024 Pain in right toe(s) (ICD-10 - M79.674) 11/09/2024 Onychomycosis (ICD-10 - B35.1) 11/09/2024 Pain in left toe(s) (ICD-10 - M79.675) Plan Of Treatment Pending Test Test Name Order Date [id number]-[id number] NAIL, 6 OR MORE 11/09/2024 Next Appt Details Follow Up: 3 Months, Reason: Provider Name:Nasreen montanez, 02/01/2025 03:30:00 PM, [address] [place] [address], [phone], Procedure Notes * Category Sub-Category Detail Notes Debride Nail 6-10 Nail debridement Due to the cl inical pathology outlined in the exam findings, performance of this nail treatment is medically necessary as its management by an unskilled/untrained nonprofessional would put this patients foot and overall health at risk. Therefore, debridement to affected nail(s), as described in exam ( TA, T1, T2, T3, T4, T5, T6, T7, T8, T9, ), was performed exclusively by the physician of record to reduce/remove overall nail length, girth, thickness, subungual debris, and necrotic tissue, by manual and/or electrical means through the use of a nail nipper and/or dremel-type hob grinder, to a more viable healthy nail plate or bed tissue 6-10 nails in total. Silver nitrate was used for any petechial bleeding as necessary. Definitive antifungal treatment options, both pharmaceutical and surgical, have been reviewed and discussed with the patient. The patient solely prefers the use of intermittent/as needed professional debridement services for their nail condition and understands the need for additional periodic treatments to maintain effectiveness in symptomatic relief - 96085 Progress Notes * Damaris VALLADARES ADOB: (78 yo F)Acc No.[id number]:11/09/2024 Progress Note Patient:?Delaney VALLADARES Provider:?Nasreen Levy DPM :1945???Age:78 Y???Sex:Female D ate:11/09/2024 Address:[address] [place] [address], [place], [place] Pcp:Nikko Perrin MD Subjective: * Chief Complaints: * ???Painful nail(s) aggravate d by shoes causing difficulty standing/walking * HPI: ???Painful Nails:?Pt States Last PCP Visit:?Date:?08/21/2024 * ROS:?General/Constitutional:?Nausea?denies.?Vomiting?denies.?Hunger Thirst?denies.?Loss appetite?denies.?Chills?denies.?Fatigue?denies.?Fever?denies.?Night Sweats?denies.?Unexplained weight loss?denies.?Unexplained weight gain?denies.?HEENTM:?Dentures?denies.?Dizziness?denies.?Glasses/contacts?admits.?Retinopathy?de nies.?Blurred/double vision?denies.?TMJ?denies.?Discharge/drainage?denies.?Implants?denies.?Sore throat?denies.?Dental implants?denies.?Hard of hearing ?denies.?Difficulty chewing/swallowing/speaking?denies.?Nose bleeds?denies.?Sore mouth?denies.?Respiratory:?On Oxygen?denies.?Pneumonia/pleurisy?denies.?Bronchitis?denies.?Emphysema?denies.?C oughing?denies.?Cough blood?denies.?Shortness of breath?denies.?Wheezing?denies.?Cardiovascular:?Pacemaker?denies.?MVP?denies.?WPW?denies.?CHF?denies.?Heart attack?denies.?Septal defect?denies.?Rapid beat?denies.?Chest pain ?denies.?Atrial Fib.?denies.?Murmur/Palpitations?denies.?Gastrointestinal:?Hemorrhoids?denies.?Stomach/Abdominal pain?denies.?Dark blood stool?denies.?Irritable bowel ?denies.?Constipation?denies.?Diarrhea?denies.?Hematology:?Swelling?denies.?Clots?denies.?Varicose Veins?denies.?Bruising?denies.?Bleeding problem?denies.?Genitourinary:?Blood urine?denies.?Frequent/Painfu/urination/bladder control?denies.?Kidney stones?denies.?Infection (UTI)?denies.?Nephropathy?denies.?sex trans dis (STD)?denies.?Prostate?denies.?Musculoskeletal:?Hammertoes?denies.?Bunions?admits.?Back Pain?denies.?Muscle Cramps/ Resting?denies.?Muscle cramps / walking?denies.?Generalized aches and pains?admits.?Weakness?denies.?Integ.:?Boo?denies.?Scars?denies.?Corns/calluses?admits.?Ingrown nails?denies.?Painful nails?denies.?Open Sores?denies.?Rashes?denies.?Neurologic:?Difficulty sleeping?admits.?Brain disorder?denies.?Numbness?denies.?Balance trouble?denies.?Confusion?denies.?Fainting/blackouts?denies.?Tingling?denies.?Tr emors?denies.? * Medical History:? * Surgical History:?tonsillect diego 1949Breast Surgery - left lumpectomy * Hospitalization/Major Diagno stic Procedure:?Denies Past Hospitalization * Family History:?Mother: dece ased, poor circulation, cancer, diagnosed with Other malignant neoplasm of unspecified site, Unspecified essential hypertension, Other specified conditions influencing health status, Family history of arthritis.?Father: , stroke, diagnosed with Unspecified heart disease, Other specified conditions influencing health status.? * Social History:?Tobacco Use:?Tobacco use other than smoking?Are you an other tobacco user??No ?Tobacco Control (Standard)?Tobacco use:?Nonsmoker ?Additional Findings: Tobacco non-user?Current nonsmoker ???Drugs/Alcohol:?Drugs?Have you used drugs other than those for medical reasons in the past 12 months??No ???Miscellaneous:?Caffeine: no, frequency:, 2-3 cups per day decaff coffee. ?Children: yes, 2. ?Exercise: yes, walking, housework, swimming. ?Marital status: . 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 ???Drug/Alcohol:?AUDIT-C (Standard)?Did you have a drink containing alcohol in the past year??No ?Points?0 ?Interpretation?Negative * Medications:?TakingCiclopiro x Olamine 0.77 % Cream 1 application to affected area Externally Twice a day to effected areas on feet Flonase , Notes to Pharmacist: PRNTolterodine Tartrate , Notes to Pharmacist: once a dayAspirin 81 MG Tablet Chewable 1 tablet Orally Once a day Atorvastatin Calcium 80 MG Tablet 1 tablet Orally Once a day Tussin Cough , Notes to Pharmacist: PRNValium 5 MG Tablet 1 tablet as needed Orally Once a day oxyBUTYnin Chloride ER 10 MG Tablet Extended Release 24 Hour 1 tablet Orally Once a day Ammonium Lactate 12 % Cream 1 application Externally to affected areas of dry skin to feet except for between the toes Twice a day Medication List reviewed and reconciled with the patientTaking Ciclopirox Olamine 0.77 % Cream 1 application to affected area Externally Twice a day to effected areas on feet Taking Flonase , Notes to Pharmacist: PRNTaking Tolterodine Tartrate , Notes to Pharmacist: once a dayTaking Aspirin 81 MG Tablet Chewable 1 tablet Orally Once a day Taking Atorvastatin Calcium 80 MG Tablet 1 tablet Orally Once a day Taking Tussin Cough , Notes to Pharmacist: PRNTaking Valium 5 MG Tablet 1 tablet as needed Orally Once a day Taking oxyBUTYnin Chloride ER 10 MG Tablet Extended Release 24 Hour 1 tablet Orally Once a day Taking Ammonium Lactate 12 % Cream 1 application Externally to affected areas of dry skin to feet except for between the toes Twice a day Medication List reviewed and reconciled with the patient * Allergies:?N.K.D.A.yes[Aller gies Verified] Objective: * Vitals:?Ht: 5 ft 2 in, Wt:15 6, BMI: 28.53, Shoe size:7W, BP:120/80mm Hg, Wt-k.76 kg. * Examination: ???Nails: ?NAILS are:?Elongated, overgrown, dystrophic, lytic, greater than 3mm thick, discolored and friable with crumbly malodorous subungual debris, with pain on palpation, TA, T1, T2, T3, T4, T5, T6, T7, T8, T9.? Assessment: * Assessment: 1.?Pain in right toe(s) - M7 9.674???2.?Onychomycosis - B35.1 (Primary)???3.?Pain in left toe(s) - M79.675??? Plan: * Treatment: * Procedures:?Debride Nail 6-10:?Nail debridement?Due to the clinical pathology outlined in the exam findings, performance of this nail treatment is medically necessary as its management by an unskilled/untrained nonprofessional would put this patients foot and overall health at risk. Therefore, debridement to affected nail(s), as described in exam ( TA, T1, T2, T3, T4, T5, T6, T7, T8, T9, ), was performed exclusively by the physician of record to reduce/remove overall nail length, girth, thickness, subungual debris, and necrotic tissue, by manual and/or electrical means through the use of a nail nipper and/or dremel-type hob grinder, to a more viable healthy nail plate or bed tissue 6- 10 nails in total. Silver nitrate was used for any petechial bleeding as necessary. Definitive antifungal treatment options, both pharmaceutical and surgical, have been reviewed and discussed with the patient. The patient solely prefers the use of intermittent/as needed professional debridement services for their nail condition and understands the need for additional periodic treatments to maintain effectiveness in symptomatic relief - 92786.? * Procedure Codes:?74735 DEBRI DE NAIL, 6 OR MORE * Follow Up:?3 Months * Images: * Sign off status: Completed true * Provider:?Nasreen Levy DPM Date:?0 11/09/2024 Generated for Mario cartagena/Anamaria/Heather on:?11/22/2024 09:33 AM EDT History and Physical Notes * HPI (History of Present Illness) Category Sub-Category Detail Notes Category Not es Painful Nails Pt States Last PCP Visit: Date:: 08/21/2024 Examination Category Sub-Category Detail Notes Category Not es Nails NAILS are: Elongated, overg rown, dystrophic, lytic, greater than 3mm thick, discolored and friable with crumbly malodorous subungual debris, with pain on palpation, TA, T1, T2, T3, T4, T5, T6, T7, T8, T9
--- OUTSIDE RECORDS SUMMARY | 2024-11-22 09:33 | XMS_ITS ---
Author Organization [facility] [place] Address [address] [facility] [place] [address] Care Team Providers Care Satellite Tv Technician Installer Name Role Phone Nikko Perrin MD Primary Care Provider Nasreen Nuno Unavailable [phone] Allergies No Known Allergies REASON FOR VISIT Skin problem(s), Painful nail(s) aggrevated by shoes and causing difficulty standing/walking. Medications Medication SIG (Take, Route, Frequency, Duration) Notes Start Date End Date Status Tolterodine Tartrate once a day Active Atorvastatin Calcium 80 MG 1 tablet Orally Once a day for 30 day(s) Active Aspirin 81 MG 1 tablet Orally Once a day Active Valium 5 MG 1 tablet as needed Orally Once a day Active Tussin Cough PRN Active oxyBUTYnin Chloride ER 10 MG 1 tablet Orally Once a day for 30 day(s) Active Ammonium Lactate 12 % 1 application Externally to affected areas of dry skin to feet except for between the toes Twice a day for 30 days Active Ciclopirox Olamine 0.77 % 1 application to affected area Externally Twice a day to effected areas on feet for 30 days Active Flonase PRN Active Social History Tobacco Use: Social History Observation Description Date Details (start date - stop date) Never Smoker NA - NA Tobacco Use/Smoking Question Answer Notes Are you a: nonsmoker Additional Findings: Tobacco Non-User Current no n-smoker Alcohol Screen Question Answer Notes Did you have a drink containing alcohol in the p ast year? No Points 0 Interpretation Negative Tobacco use other than smoking: Question Answer Notes Are you an other tobacco user? No Vital Signs Height 5 ft 2 in in 07/05/2024 Weight 156 lbs 07/05/2024 BMI 28.53 kg/m2 07/05/2024 Blood pressure systolic 122 mm Hg 07/05/20 24 Blood pressure diastolic 80 mm Hg 024 Procedures Procedure Date Ordered Date Performed Result Body Sit e 98968-XWSRIJL NAIL, 6 OR MORE 07/05/2024 N/A Encounters Encounter Location Date Provider Diagnosis [facility] [address] [address] 07/05/2024 Nasreen Levy Xerosis of skin L85.3 ; Tinea unguium B35.1 ; Pain in right toe(s) M79.674 and Pain in left toe(s) M79.675 Assessments Encounter Date Diagnosis (ICD Code) Assessment Notes Treatment Notes Treatment Clinical Notes Section Notes 07/05/2024 Xerosis of skin (ICD-10 - L85.3) 07/05/2024 Tinea unguium (ICD-10 - B35.1) 07/05/2024 Pain in right toe(s) (ICD-10 - M79.674) 07/05/2024 Pain in left toe(s) (ICD-10 - M79.675) Plan Of Treatment Medication Medication Name Sig Start Date Stop Date Notes Ammonium Lactate 12 % 1 application Exte rnally to affected areas of dry skin to feet except for between the toes Twice a day for 30 days Pending Test Test Name Order Date 95382-JTPVSLP NAIL, 6 OR MORE 07/05/2024 Next Appt Details Follow Up: 3 Months, Reason: Provider Name:Nasreen montanez, 02/01/2025 03:30:00 PM, [address] [place] [address], [id number], Procedure Notes * Category Sub-Category Detail Notes [...] use of a nail nipper and/or dremel-type swing grinder, to a more viable healthy nail [...] to maintain effectiveness in symptomatic relief - 84745 Progress Notes * Damaris VALLADARES ADOB: (78 yo F)Acc No.[id number]:07/05/2024 Progress Note Patient:?Jaswinder VALLADARESzana Leonardo Provider:?Nasreen Levy DPM :1945???Age:78 Y???Sex:Female D ate:07/05/2024 Address:[address] [place], [place] [id number] Pcp:Nikko Perrin MD Subjective: * Chief Complaints: * ???Skin problem(s) Painful n ail(s) aggrevated by shoes and causing difficulty standing/walking. * HPI: ???Painful Nails:?Pt States Last PCP Visit:?Date:?04/04/2024 ???Skin problems:?Nature:?dryness , scaling.?Location:?B/L .?Duration:?several days.?Course:?worse.? * ROS:?General/Constitutional:?Nausea?denies.?Vomiting?denies.?Hunger Thirst?denies.?Loss appetite?denies.?Chills?denies.?Fatigue?denies.?Fever?denies.?Night Sweats?denies.?Unexplained weight loss?denies.?Unexplained [...] * Medical History:? * Surgical History:?tonsillect diego 194Breast Surgery - left lumpectomy * Hospitalization/Major Diagno stic Procedure:?Denies Past Hospitalization * Family History:?Mother: dece ased, poor circulation, cancer, diagnosed with Other malignant neoplasm of unspecified site, Unspecified essential hypertension, Other specified conditions influencing health status, Family history of arthritis.?Father: , stroke, diagnosed with Unspecified heart disease, Other specified conditions influencing health status.? * Social History:?Tobacco Use:?Tobacco Use/Smoking?Are you a:?nonsmoker ?Additional Findings: Tobacco Non-User?Current non-smoker ?Tobacco use other than smoking?Are you an other tobacco user??No ???Drugs/Alcohol:?Drugs?Have you used drugs other than those for medical reasons in the past 12 months??No ?Alcohol Screen?Did you have a drink containing alcohol in [...] Hour 1 tablet Orally Once a day Medication List reviewed and reconciled [...] Hour 1 tablet Orally Once a day Medication List reviewed and reconciled with the patient * Allergies:?N.K.D.A.yes[Aller gies Verified] Objective: * Vitals:?Ht: 5 ft 2 in, Wt:15 6, BMI: 28.53, Shoe size:7W, BP:122/80mm Hg, Wt-k.76 kg. * Examination: ???Dermatologic: ?SKIN FINDINGS:?Skin shows sign(s) of, dryness, scaling, in a stocking fashion, no fissure(s) present, B/L.?Nails: ?NAILS are:?Elongated, overgrown, dystrophic, lytic, greater than 3mm thick, discolored and friable with crumbly malodorous subungual debris, with pain on palpation, TA, T1, T2, T3, T4, T5, T6, T7, T8, T9.?General Examination: ?GENERAL APPEARANCE:?pleasant, alert, well nourished, well developed, well hydrated, with good attention to hygene/body habitus, and in no acute distress.?ORIENTED:?person,place, and time.?Vascular: ?DP PULSES (B):?2/4, B/L.?PT PULSES (B):?2/4, B/L.?CAPILLARY FILL TIME:?3 secs. per digit, B/L.?TROPHIC CONDITION-TEXTURE/ELASTICITY/TURGOR/HAIR GROWTH (B):?normal, B/L.?TEMPERTURE GRADIENT (C):?warm to cool, proximal to distal, B/L.?PIGMENTATION:?normal, B/L.?EDEMA (C):? 2/4, Right, Ankle(s), Leg(s).?TELANGECTASIA:?absent.?VARICOSITIES:?absent.?Neurological: ?SENSORY:?Neurological exam reveals intact sensorium, pain sensation normal, vibration sensation intact, pinprick sensation is normal in the lower extremities, Pt denies, anesthesia, burning, paresthesia, tingling, B/L.?BABINSKI REFLEX:?absent.?Orthopedic: ?MUSCLE STRENGTH:?5/5 all groups in a symmetrical fashion , B/L.? Assessment: * Assessment: 1.?Xerosis of skin - L85.3?? ?Specify :Acute problem, Uncomplicated (3),Rx Management (4)???2.?Tinea unguium - B35.1 (Primary)???3.?Pain in right toe(s) - M79.674???4.?Pain in left toe(s) - M79.675??? Plan: * Treatment: 2.?Xerosis of skin? Start Ammonium Lactate Cream, 12 %, 1 application, Externally to affected areas of dry skin to feet except for between the toes, Twice a day, 30 days, 140, Refills 2.?? * Procedures:?Debride Nail 6-10:?Nail debridement?Due to the [...] use of a nail nipper and/or dremel-type swing grinder, to a more viable healthy nail [...] to maintain effectiveness in symptomatic relief - 64877.? * Procedure Codes:?26719 DEBRI DE NAIL, 6 OR MORE, Modifiers: XS * Preventive Medicine:? ??Counseling:?Discussion:?-13: Office or other outpatient visit for the evaluation and management of an established patient, which required a medically appropriate history and/or examination and LOW level of DECISION MAKING for: 1 STABLE ACUTE UNCOMPLICATED PROBLEM, 2 OR MORE MINOR PROBLEMS, OR 1 STABLE CHRONIC PROBLEM, THAT POSE(S) A LOW RISK FOR MORBIDITY/MORTALITY. The visit on the day of the encounter encompassed interpreting the data and educating the patient as to the nature of their condition, treatment options available according to their individual PMH, meds, allergies, and overall health/living conditions, as well as any potential risks or complications that may occur from a failure to adhere to, and participate in, the recommended course of therapy. The discussion included a complete verbal, and/or written explanation of the examination results, any x-rays taken, the proposed diagnosis, and outline of the treatment plan. A schedule for future care needs was also explained. The patient verbalized an understanding of the instructions at this time and agreed to be an active participant in their treatment. If the patient should think of any questions or concerns after the visit, I have encouraged the patient to call the office.?Xerosis:?The patient was counseled on the diagnosis, potential etiologies, and treatment options for their skin condition. We discussed the risks and benefits of each option from performing no treatment, to utilizing OTC topical skin creams/ointments, to utilizing prescription topical creams/ointments, to utilizing customized compounded topical medications and use of nocturnal occlusion with any/all previously detailed therapies. We discussed the advantages and disadvantages of each possible treatment and importance for adherence to all the recommended therapies for optimum success and avoid potential complications such as open sore/infection/possible hospitalization. We discussed the potential effectiveness of each topical preparation as well as each ones possible side effects and/or patient medication interactions. Patient questions re: use, dosage, successful outcomes, and application consistency were reviewed and the patient verbalized that all answers were clearly understood. The patient has decided to apply Rx skin creams to their feet save the interspaces while paying special attention to the heels. Such was sent to their pharmacy at the time of visit.? * Follow Up:?3 Months * Images: * Sign off status: Completed true * Provider:?Nasreen Levy DPM Date:?09/05/2023 Generated for Mario cartagena/Anamaria/Jose Angelitting on:?11/22/2024 09:33 AM EDT History and Physical Notes * HPI (History of Present Illness) Category Sub-Category Detail Notes Category Not es Painful Nails Pt States Last PCP Visit: Date:: 04/04/2024 Skin problems Nature: dryness , scaling Location: B/L Duration: several days Course: worse Examination Category Sub-Category Detail Notes Category Not es Neurological SENSORY: Neurological exa m reveals intact sensorium, pain sensation normal, vibration sensation intact, pinprick sensation is normal in the lower extremities, Pt denies, anesthesia, burning, paresthesia, tingling, B/L BABINSKI REFLEX: absent Dermatologic SKIN FINDINGS: Skin shows sign( s) of, dryness, scaling, in a stocking fashion, no fissure(s) present, B/L Orthopedic MUSCLE STRENGTH: 5/5 all groups in a symm etrical fashion , B/L General Examination GENERAL APPEARANCE: pleasant , alert, well nourished, well developed, well hydrated, with good attention to hygene/body habitus, and in no acute distress ORIENTED: person,place, and ti me Vascular DP PULSES (B): 2/4, B/L PT PULSES (B): 2/4, B/L CAPILLARY FILL TIME: 3 secs. per digit, B/L TEMPERTURE GRADIENT (C): warm to cool, p roximal to distal, B/L TROPHIC CONDITION-TEXTURE/ELASTICITY/TURGOR/HAIR GROWTH (B): normal, B/L EDEMA (C): 2/4, Right, Ankle(s) , Leg(s) TELANGECTASIA: absent VARICOSITIES: absent PIGMENTATION: normal, B/L Nails NAILS are: Elongated, overg rown, dystrophic, lytic, greater than 3mm thick, discolored and friable with crumbly malodorous subungual debris, with pain on palpation, TA, T1, T2, T3, T4, T5, T6, T7, T8, T9
--- OUTSIDE RECORDS SUMMARY | 2024-11-22 09:34 | XMS_ITS ---
[facility] Address [address] [facility] [place] [address] Care Team Providers Care Materials Manager Name Role Phone Nikko Perrin MD Primary Care Provider UnavailNasreen Pedersen Unavailable [phone] Asher Zimmerman Unavailable [phone] Allergies No Known Allergies REASON FOR VISIT Painful toe(s), Painful nail(s) aggrevated by shoes and causing difficulty standing/walking. Medications Medication SIG (Take, Route, Frequency, Duration) Notes Start Date End Date Status Ciclopirox Olamine 0.77 % 1 application to affected area Externally Twice a day to effected areas on feet for 30 days Active Flonase PRN Active Tolterodine Tartrate once a day Active Valium 5 MG 1 tablet as needed Orally Once a day Active oxyBUTYnin Chloride ER 10 MG 1 tablet Orally Once a day for 30 day(s) Active Aspirin 81 MG 1 tablet Orally Once a day Active Atorvastatin Calcium 80 MG 1 tablet Orally Once a day for 30 day(s) Active Tussin Cough PRN Active Social History [...] Signs Height 5 ft 2 in in 03/30/2024 Weight 156 lbs 03/30/2024 BMI 28.53 kg/m2 03/30/2024 Encounters Encounter Location Date Provider Diagnosis [facility] [address] [address] 03/30/2024 Asher Zimmerman Pain in right toe(s) M79.674 ; Hallux valgus (acquired), right foot M20.11 ; Other hammer toe(s) (acquired), right foot M20.41 ; Localized edema R60.0 ; Tinea unguium B35.1 ; Pain in left toe(s) M79.675 ; Tinea pedis B35.3 ; Tailor's bunionette, left M21.622 and Tailor's bunionette, right M21.621 Assessments Encounter Date Diagnosis (ICD Code) Assessment Notes Treatment Notes Treatment Clinical Notes Section Notes 03/30/2024 Pain in right toe(s) (ICD-10 - M79.674) 03/30/2024 Hallux valgus (acquired), right foot (ICD-10 - M20.11) 03/30/2024 Other hammer toe(s) (acquired), right foot (ICD-10 - M20.41) 03/30/2024 Localized edema (ICD-10 - R60.0) 03/30/2024 Tinea unguium (ICD-10 - B35.1) 03/30/2024 Pain in left toe(s) (ICD-10 - M79.675) 03/30/2024 Tinea pedis (ICD-10 - B35.3) 03/30/2024 Tailor's bunionette, left (ICD-10 - M21.622) 03/30/2024 Tailor's bunionette, right (ICD-10 - M21.621) Plan Of Treatment Medication Medication Name Sig Start Date Stop Date Notes Ciclopirox Olamine 0.77 % 1 application to affected area Externally Twice a day to effected areas on feet for 30 days Next Appt Details Follow Up: 3 Months, Reason: Provider Name:Nasreen montanez, 02/01/2025 03:30:00 PM, [address] [place] [address], [id number], Procedure Notes * Category Sub-Category Detail Notes Debride Nail 6-10 Nail debridement Nail debridem ent performed extensively to reduce/remove overall nail length and girth, subungual debris, and necrotic tissue, by manual and electrical means with use of a nail nipper and/or dremel, to more viable healthy nail plate or bed tissue 6-10. Silver nitrate used for any petechial bleeding as necessary. Patient chooses, no pharmaceutical tx (85416) Progress Notes * Damaris VALLADARES ADOB: (78 yo F)Acc No.[id number]:03/30/2024 Progress Note Patient:?Delaney Valladares Provider:?Asher Zimmerman DPM :1945???Age:78 Y???Sex:Female D ate:03/30/2024 Address:[address] [place] [address] [id number] Pcp:Nikko Perrin MD Subjective: * Chief Complaints: * ???Painful toe(s) Painful na il(s) aggrevated by shoes and causing difficulty standing/walking. * HPI: ???Toe pain:?Nature:?tenderness, inflammed, redness.?Location:?2nd toe, 5th toe, B/L feet, Great toe, B/L feet, Right foot.?Duration:?a year or more.?Onset/Cause:?gradual.?Course:?stable.?Aggravated by:?shoes and excessive walking activity.?Treatments:?pt has complied with use of silicone spacer padding which has helped.?Severity/Quality:?moderate.?Painful Nails:?Pt States Last PCP Visit:?Date:?12/27/2023 ???Skin problems:?Nature:?tender, dryness, peeling.?Location:?Bottom, Forefoot, B/L .?Course:?improved.?Treatments:?Topical antifungal.? * ROS:?General/Constitutional:?Nausea?denies.?Vomiting?denies.?Hunger Thirst?denies.?Loss appetite?denies.?Chills?denies.?Fatigue?denies.?Fever?denies.?Night Sweats?denies.?Unexplained weight loss?denies.?Unexplained [...] dece ased, poor circulation, cancer, diagnosed with Family history of arthritis, Unspecified essential hypertension, Other malignant neoplasm of unspecified site, Other specified conditions influencing health status.?Father: , stroke, diagnosed with Unspecified heart disease, [...] alcohol in the past year??No ?Points?0 ?Interpretation?Negative ???Miscellaneous:?no Caffeine, frequency:, 2-3 cups per day decaff coffee. ?Children: yes, 2. ?Exercise: yes, walking, housework, swimming. ?Marital status: . 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 * Medications:?TakingCiclopiro x Olamine 0.77 % Cream 1 application to affected area Externally Twice a day to effected areas on feetFlonase , Notes: PRNTolterodine Tartrate , Notes: once a dayAspirin 81 MG Tablet Chewable 1 tablet Orally Once a dayAtorvastatin Calcium 80 MG Tablet 1 tablet Orally Once a dayTussin Cough , Notes: PRNValium 5 MG Tablet 1 tablet as needed Orally Once a dayoxyBUTYnin Chloride ER 10 MG Tablet Extended Release 24 Hour 1 tablet Orally Once a dayMedication List reviewed and reconciled with the patientTaking Ciclopirox Olamine 0.77 % Cream 1 application to affected area Externally Twice a day to effected areas on feetTaking Flonase , Notes: PRNTaking Tolterodine Tartrate , Notes: once a dayTaking Aspirin 81 MG Tablet Chewable 1 tablet Orally Once a dayTaking Atorvastatin Calcium 80 MG Tablet 1 tablet Orally Once a dayTaking Tussin Cough , Notes: PRNTaking Valium 5 MG Tablet 1 tablet as needed Orally Once a dayTaking oxyBUTYnin Chloride ER 10 MG Tablet Extended Release 24 Hour 1 tablet Orally Once a dayMedication List reviewed and reconciled with the patient * Allergies:?N.K.D.A.yes[Aller gies Verified] Objective: * Vitals:?Ht: 5 ft 2 in, Wt:15 6, BMI:28.53, Shoe size:7W. * Examination: ???General Examination: ?GENERAL APPEARANCE:?pleasant, alert, well nourished, well developed, well hydrated, with good attention to hygene/body habitus, and in no acute distress.?ORIENTED:?person,place, and time.?Neurological: ?SENSORY:?Neurological exam reveals intact sensorium, pain sensation normal, vibration sensation intact, pinprick sensation is normal in the lower extremities, Pt denies, anesthesia, burning, paresthesia, tingling, B/L, Neurological exam demonstrates NO pop lateral t5 ipj; but mild pop plantar-medial t5 ipj.?BABINSKI REFLEX:?absent.?Vascular: ?DP PULSES:?2/4, B/L.?PT PULSES:?2/4, B/L.?CAPILLARY FILL TIME:?3 secs. per digit, B/L.?SKIN TEMPERTURE GRADIENT OF THE LOWER EXTERMITIES:?warm to cool, proximal to distal, B/L.?TROPHIC CONDITION FOR TEXTURE/ELASTICITY/TURGOR/HAIR GROWTH:?normal, B/L.?PIGMENTATION:?normal, B/L.?EDEMA:? 2/4, Right, Ankle(s), Leg(s).?TELANGECTASIA:?absent.?VARICOSITIES:?absent.?Dermatologic: ?SKIN FINDINGS:? Skin exam reveals Keratotic lesion(s) located at, Medial, PIPJ, T6, Plantar, IPJ, T5, rash right leg is resolved; ?interdigital maceration ibeth ff--resolved.?Orthopedic: ?MUSCLE STRENGTH:?5/5 all groups in a symmetrical fashion , B/L.?GAIT ABNORMALITY:?pronated, abducted, B/L.?BUNION:? Medially prominent 1st MPJ, RIGHT, Lateral tracking 1st MPJ incompletely reducible.?TORRES'Molly BUNION:? Prominent, painful, inflamed 5th MTH/MPJ, B/L.?DIGITAL DEFORMITIES:? Digital contracture, PIPJ, 2-5 B/L, incompl- reducible with WB, or to push-up test, no over, nor underlapping.?Nails: ?NAILS are:?elongated,overgrown,dystrophic,greater than 3mm thick,discolored and friable with crumbly malodorous subungual debris, with pain on palpation, 1-5 Left foot, T5, T6, T8, T9 .? Assessment: * Assessment: 1.?Pain in right toe(s) - M7 9.674 (Primary)?2.?Hallux valgus (acquired), right foot - M20.11?3.?Other hammer toe(s) (acquired), right foot - M20.41?4.?Localized edema - R60.0?5.?Tinea unguium - B35.1?6.?Pain in left toe(s) - M79.675?7. Tinea pedis - B35.3?8.?Torres's bunionette, left - M21.622?9.?Torres's bunionette, right - M21.621? Plan: * Treatment: * Procedures:?Debride Nail 6-10:?Nail debridement?Nail debridement performed extensively to reduce/remove overall nail length and girth, subungual debris, and necrotic tissue, by manual and electrical means with use of a nail nipper and/or dremel, to more viable healthy nail plate or bed tissue 6-10. Silver nitrate used for any petechial bleeding as necessary. Patient chooses, no pharmaceutical tx ([id number]).? * Procedure Codes:?96438 DEBRI DE NAIL, 6 OR MORE, Modifiers: XS * Preventive Medicine:? ??Counseling:?Discussion:?-12: Office or other outpatient visit for the evaluation and management of an established patient, which required a medically appropriate history and/or examination and STRAIGHTFORWARD level of MEDICAL DECISION MAKING, 1 SELF-LIMITED OR MINOR PROBLEM, MINIMAL- NO AMOUNT/COMPLEXITY OF DATA TO BE REVIEWED/ANALYZED, AND MINIMAL RISK OF COMPLICATION/MORBIDITY. The visit on the day of the [...] have encouraged the patient to call the office--decrease af twice weekly.? * Follow Up:?3 Months * Images: * Sign off status: Completed true * Provider:?Asher Zimmerman DPM Date:? 024 Generated for Mario cartagena/Anamaria/Heather on:?11/22/2024 09:33 AM EDT History and Physical Notes * HPI (History of Present Illness) Category Sub-Category Detail Notes Category Not es Toe pain Nature: tenderness, inflammed, redne ss Location: 2nd toe, 5th toe, B/ L feet, Great toe, B/L feet, Right foot Duration: a year or more Onset/Cause: gradual Course: stable Aggravated by: shoes and excessive walking activity Treatments: pt has complied with use of silicone spacer padding which has helped Severity/Quality: moderate Painful Nails Pt States Last PCP Visit: Date:: 12/27/2023 Skin problems Nature: tender, dryness, peeling Location: Bottom, Forefoot, B/ L Course: improved Treatments: Topical antifungal Examination Category Sub-Category Detail Notes Category Not es Neurological SENSORY: Neurological exa m reveals intact sensorium, pain sensation normal, vibration sensation intact, pinprick sensation is normal in the lower extremities, Pt denies, anesthesia, burning, paresthesia, tingling, B/L, Neurological exam demonstrates NO pop lateral t5 ipj; but mild pop plantar-medial t5 ipj BABINSKI REFLEX: absent Dermatologic SKIN FINDINGS: Skin exam reveal s Keratotic lesion(s) located at, Medial, PIPJ, T6, Plantar, IPJ, T5, rash right leg is resolved; interdigital maceration ibeth ff--resolved Orthopedic GAIT ABNORMALITY: pronated, abducted, B/L BUNION: Medially prominent 1 st MPJ, RIGHT, Lateral tracking 1st MPJ incompletely reducible DIGITAL DEFORMITIES: Digital contracture , PIPJ, 2-5 B/L, incompl-reducible with WB, or to push-up test, no over, nor underlapping TAILOR'S BUNION: Prominent, painful, inflamed 5th MTH/MPJ, B/L MUSCLE STRENGTH: 5/5 all groups in a symmetrical fashion , B/L General Examination GENERAL APPEARANCE: [...] absent PIGMENTATION: normal, B/L Nails NAILS are: elongated,overgr own,dystrophic,greater than 3mm thick,discolored and friable with crumbly malodorous subungual debris, with pain on palpation, 1-5 Left foot, T5, T6, T8, T9
[2024-11-22 10:45] LABS: Cholesterol 188 mg/dL (<200); HDL Cholesterol 56 mg/dL (>40); LDL Cholesterol Calculated 98 mg/dL (<100); Triglycerides 170 mg/dL (<150)
== END 2024-11-22 09:03 | disposition home or self-care (01) ==
LOC: HO.HMGCLDS 09:02
PROVIDERS: PCP Internal Medicine; Referring Provider Internal Medicine; Visit Provider Internal Medicine
DX: E78.5 Hyperlipidemia, unspecified (principal)
CPT/HCPCS: 36415; 80061

== ENCOUNTER 2025-01-23 09:30 | Outpatient (AMB) | payer MEDICARE, SELFPAY ==
[2025-01-23 09:49] VITALS: BP 123/59; PULSE 74; RESP 14; TEMP 36.6; O2SAT 98; BMI 28.5
--- NOTE | 2025-01-23 09:49 | MHC.PC.OV ---
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 Required: No Accompanied by: Spouse Allergies No Known Allergies Allergy (Unverified 01/23/25 09:51) Tobacco use date assessed: 01/23/25 Fall risk assessment: No Falls in past year Last assessed Fall Risk: 01/23/25 Dental Screening Dental Screen Date: 01/23/25 Did you have a dental visit in the last 12 months?: Yes Did you have a dental problem in the last 6 months where you did not have access to dental care?: No Was dental information given to patient?: Patient has dentist [facility] Medical History (Updated 01/23/25 @ 10:36 by Manpreet Smith MD) Hyperlipidemia Breast CA Leg swelling Surgical History History of colonoscopy (~02/21/15) History of lumpectomy Family History Maternal Aunt Breast cancer Maternal Aunt Bone cancer Breast cancer Social History (Updated 01/23/25 @ 09:54 by DAJUAN Guajardo) Household Members: Spouse Housing: House Alcohol intake: current Alcohol intake frequency: does not drink Patient Tobacco Use Status: Never used Tobacco service: No Current occupational status: retired Cognitive needs: No Hearing needs: No Vision needs: Yes (reading glasses) Questionnaire PHQ-9 Over the last 2 weeks, how often have you been bothered by any of the following problems? 1. Little interest or pleasure in doing things: not at all 2. Feeling down, depressed, or hopeless: not at all 3. Trouble falling or staying asleep, or sleeping too much: not at all 4. Feeling tired or having little energy: not at all 5. Poor appetite or overeating: not at all 6. Feeling bad about yourself - or that you are a failure or have let yourself or your family down: not at all 7. Trouble concentrating on things, such as reading the newspaper or watching television: not at all 8. Moving or speaking so slowly that other people could have noticed. Or the opposite - being so fidgety or restless that you have been moving around a lot more than usual: not at all 9. Thoughts that you would be better off or of hurting yourself in some way: not at all Total score: 0 Source: Developed by Drs. Atilio Loredo, Alycia Hager, Raymond Estrada and colleagues, with an educational claudia from [employer]. Thrive Questionnaire Date Thrive assessed: 01/23/25 I am a: Patient What is your living situation today?: I have a steady place to live Within the past 12 months, did the food you bought not last and you didn't have the money to get more?: Never true Within the past 12 months, did you worry whether your food would run out before you got money to buy more?: Never true Do you have trouble paying for medicines?: No Do you have trouble getting transportation to medical appointments?: No Do you have trouble paying your heating and electricity bill?: No Do you have trouble taking care of your child, family member or friend?: No Do you have trouble with day-to-day activities such as bathing, preparing meals, shopping, managing finances, etc.?: No Are you currently unemployed and looking for a job?: No Are you interested in more education?: No Please select the resources that you would like help with: None THRIVE Score: 0 AUDIT C Alcohol Use Questionnaire (AUDIT-C) 1. How often do you have a drink containing alcohol?: Never 3. How often do you have six or more drinks on one occasion?: Never Total Score: 0 DILLON-7 AMB Questionnaire DILLON-7 Date DILLON - 7 assessed: 01/23/25 Feeling nervous, anxious, or on edge: 0 = Not at all Not being able to stop or control worryin = Not at all Worrying too much about different things: 0 = Not at all Trouble relaxin = Not at all Being so restless that it is hard to sit still: 0 = Not at all Becoming easily annoyed or irritable: 0 = Not at all Feeling afraid as if something awful might happen: 0 = Not at all Total DILLON-7 score (0-4 normal; 5-9 mild; 10-14 moderate; 15-21 severe): 0 Source: Developed by Drs. Atilio Loredo, Alycia Hager, Raymond Estrada and colleagues, with an educational claudia from [employer]. Physical exam (Primary Care) Vital Signs: Last Vital Signs Temp 97.8 F 01/23/25 09:49 Pulse 74 01/23/25 09:49 Resp 14 01/23/25 09:49 BP 123/59 L 01/23/25 09:49 Pulse Ox 98 01/23/25 09:49 Oxygen Delivery Method Room Air 01/23/25 09:49 BMI result Body Mass Index 28.5 Tobacco/Smoking Status: Tobacco use Status Tobacco use date assessed 01/23/25 01/23/25 09:55 Patient Tobacco Use Status Never used Tobacco 01/23/25 09:55 PHQ-9: PHQ-9 Score PHQ-9: Total score 0 01/23/25 09:55 Thrive Assessment: Date of Thrive Assessment Date Thrive assessed 01/23/25 01/23/25 09:55 Coding Level of Care Code New Pt Level 4 (04210) Complex EM visit Add On G2211 Diagnoses Breast cancer, left C50.912 Hyperlipidemia E78.5 Assessment & Plan Assessment & Plan (1) Breast cancer, left: Code(s): C50.912 - Malignant neoplasm of unspecified site of left female breast Category: Medical Plan: Condition is stable. Sees Dr Granado. (2) Hyperlipidemia: Code(s): E78.5 - Hyperlipidemia, unspecified Category: Medical Plan: Statin reordered. Plan History of Present Illness - The patient is a 79-year-old female presenting with management of osteoarthritis, evaluation of a rash under the breast, and prescription refills for hyperlipidemia and diazepam. - Osteoarthritis: Reports severe arthritis, describing it as very bad. - Breast cancer: Underwent lumpectomy and 37 radiation treatments approximately 10 years ago. - Rash under breast: Reports rash under breast for over a year, improving with Nystatin powder but recurring with perspiration or heat. - Hyperlipidemia: Out of cholesterol medication, prefers to fill prescription at a different pharmacy. - Preventative care: Undergoes regular blood work and mammograms every six months, scheduled for a bone density test this year. Social History - The patient prefers to fill prescriptions at [facility] instead of [facility]. Review of Systems - Musculoskeletal: Reports severe arthritis. - Dermatological: Reports rash under breast, improving with treatment but recurring with perspiration or heat. Physical Exam General: Cooperative and healthy appearing Nutritional Appearance: Well nourished Orientation/consciousness: Patient oriented x3 Limitations: No limitations Head: Normal to inspection General: Appearance normal, both eyes and all related structures Neck: Normal visual inspection Chest: Normal palpation of entire chest wall Respiratory: Normal respiratory effort Neurology: Patient oriented x3 Results - Labs: Recent blood work available in the system. Plan 1. Osteoarthritis - Continue current management for osteoarthritis. 2. Breast Cancer Status Post Lumpectomy And Radiation Therapy - No current issues reported, continue regular follow-up. 3. Rash Under Breast - Prescribed antifungal cream to apply once daily for two weeks, followed by corn starch powder to keep the area dry. - Follow-up in two weeks to assess improvement. 4. Hyperlipidemia - Refill prescription for cholesterol medication at preferred pharmacy. 5. Preventative Care - Scheduled for bone density test this year. Discussion Notes I discussed with the patient the management of her osteoarthritis and the need to continue her current treatment regimen. We reviewed her breast cancer history and confirmed that she is doing well post-treatment. For the rash under her breast, I prescribed an antifungal cream and advised her to apply it daily, followed by corn starch powder to keep the area dry. We agreed on a follow-up in two weeks to assess improvement. I also addressed her hyperlipidemia by refilling her cholesterol medication prescription at her preferred pharmacy. Additionally, we discussed her upcoming bone density test as part of her preventative care. Patient Instructions - Apply antifungal cream to the rash under your breast once daily for two weeks. - Use corn starch powder to keep the area dry after applying the cream. - Continue taking your cholesterol medication as prescribed. - Follow up in two weeks to check the rash improvement. - Attend your scheduled bone density test. Medications: New atorvastatin 80 mg PO DAILY 90 tabs 1RF
--- OUTSIDE RECORDS SUMMARY | 2025-01-23 09:56 | XMS_ITS | Patient Health Record ---
[facility] [place] Address [address] [place] [address] Care Team Providers Care Salesperson [employer] Name Role Phone Nikko Perrin MD Primary Care Provider Unavailab Nasreen Muniz Unavailable [phone] Asher Zimmerman Unavailable [phone] Allergies No Known Allergies Reason For Referral No Information Medications Medication SIG (Take, Route, Frequency, Duration) Notes Start Date End Date Status Ciclopirox Olamine 0.77 % 1 application to affected area Externally Twice a day to effected areas on feet; Duration: 30 days Active Tolterodine Tartrate once a day Active Flonase PRN Active Atorvastatin Calcium 80 MG 1 tablet Orally Once a day; Duration: 30 day(s) Active Aspirin 81 MG 1 tablet Orally Once a day Active Valium 5 MG 1 tablet as needed Orally Once a day Active Tussin Cough PRN Active Ammonium Lactate 12 % 1 application Externally to affected areas of dry skin to feet except for between the toes Twice a day; Duration: 30 days Active oxyBUTYnin Chloride ER 10 MG 1 tablet Orally Once a day; Duration: 30 day(s) Active Social History Tobacco Use: [...] Ordered Date Performed Result Body Sit e 76381-DOKDHBG NAIL, 6 OR MORE 07/05/2024 N/A [id number] NAIL, 6 OR MORE 11/09/2024 N/A Encounters Encounter Location Date Provider Diagnosis [address] [address] 03/30/2024 Asher Zimmerman Pain in right toe(s) M79.674 ; Hallux valgus (acquired), right foot M20.11 ; Other hammer toe(s) (acquired), right foot M20.41 ; Localized edema R60.0 ; Tinea unguium B35.1 ; Pain in left toe(s) M79.675 ; Tinea pedis B35.3 ; Tailor's bunionette, left M21.622 and Tailor's bunionette, right M21.[address] [address] 07/05/2024 Nasreen Levy Xerosis of skin L85.3 ; Tinea unguium B35.1 ; Pain in right toe(s) M79.674 and Pain in left toe(s) M79.[address] [address] 11/09/2024 Nasreen Levy Pain in right toe(s) M79.674 ; Onychomycosis B35.1 and Pain in left toe(s) M79.675 Assessments Encounter Date Diagnosis (ICD Code) Assessment Notes Treatment Notes Treatment Clinical Notes Section Notes 03/30/2024 Hallux valgus (acquired), right foot (ICD-10 - M20.11) 03/30/2024 Pain in right toe(s) (ICD-10 - M79.674) 07/05/2024 Xerosis of skin (ICD-10 - L85.3) 11/09/2024 Pain in right toe(s) (ICD-10 - M79.674) 11/09/2024 Onychomycosis (ICD-10 - B35.1) 07/05/2024 Tinea unguium (ICD-10 - B35.1) 03/30/2024 Other hammer toe(s) (acquired), right foot (ICD-10 - M20.41) 07/05/2024 Pain in right toe(s) (ICD-10 - M79.674) 11/09/2024 Pain in left toe(s) (ICD-10 - M79.675) 03/30/2024 Localized edema (ICD-10 - R60.0) 07/05/2024 Pain in left toe(s) (ICD-10 - M79.675) 03/30/2024 Tinea unguium (ICD-10 - B35.1) 03/30/2024 Pain in left toe(s) (ICD-10 - M79.675) 03/30/2024 Tinea pedis (ICD-10 - B35.3) 03/30/2024 Tailor's bunionette, left (ICD-10 - M21.622) 03/30/2024 Tailor's bunionette, right (ICD-10 - M21.621) Plan Of Treatment Pending Test Test Name Order Date X ray : Foot, right 3V 11/24/2022 [id number] NAIL, 6 OR MORE 07/05/2024 [id number] NAIL, 6 OR MORE 11/09/2024 [id number] SKIN/TISSUE 11/24/2022 Next Appt Details Provider Name:Nasreen montanez, 02/01/2025 03:30:00 PM, [address] [place], [address], Insurance Providers Payer Name Payer Address Payer Phone Subscriber Number Group Number Insured Name Patient Relationship to Insured Coverage Start Date Coverage End Date [employer] Medicare Adv-[id number] [address] [address] [place] [address] [phone] [id number] [facility] Self - patient is the insured Medical (General) History Medical History History ICD Code Arthritis Cholesterol raynauds disease Poor circulation Measles Chicken pox Polycythemia vera Surgical History Surgery Date(Month/Year) tonsillectomy 194 Breast Surgery - left lumpectomy
== END 2025-01-23 10:37 | disposition home or self-care (01) ==
LOC: HO.HMCSH 09:30
PROVIDERS: PCP Internal Medicine; Visit Provider Internal Medicine
DX: C50.912 Malignant neoplasm of unspecified site of left female breast (principal); E78.5 Hyperlipidemia, unspecified

== ENCOUNTER → 2025-01-23 09:30 | Outpatient (BNVA) | payer MEDICARE, SELFPAY | PROVIDERS: PCP Internal Medicine; Visit Provider Internal Medicine | DX: E78.5 Hyperlipidemia, unspecified (principal); C50.912 Malignant neoplasm of unspecified site of left female breast | CPT/HCPCS: 99202 ==

== ENCOUNTER 2025-02-06 08:59 | Outpatient (AMB) | payer MEDICARE, SELFPAY ==
[2025-02-06 08:56] VITALS: BP 114/68; PULSE 82; RESP 14; TEMP 36.5; O2SAT 97; BMI 27.9
--- NOTE | 2025-02-06 08:56 | A.OFFPC_ITS ---
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: No Accompanied by: Spouse Allergies No Known Allergies Allergy (Unverified 02/06/25 08:56) Tobacco use date assessed: 02/06/25 Dental Screening Dental Screen Date: 01/23/25 [facility] Medical History Hyperlipidemia Breast CA Leg swelling Surgical History History of colonoscopy (~02/21/15) History of lumpectomy Family History Maternal Aunt Breast cancer Maternal Aunt Bone cancer Breast cancer Social History Household Members: Spouse Housing: House Alcohol intake: current Alcohol intake frequency: does not drink Patient Tobacco Use Status: Never used Tobacco service: No Current occupational status: retired Cognitive needs: No Hearing needs: No Vision needs: Yes (reading glasses) Questionnaire PHQ-9 Over the last 2 weeks, how often have you been bothered by any of the following problems? 1. Little interest or pleasure in doing things: not at all 2. Feeling down, depressed, or hopeless: not at all 3. Trouble falling or staying asleep, or sleeping too much: not at all 4. Feeling tired or having little energy: not at all 5. Poor appetite or overeating: not at all 6. Feeling bad about yourself - or that you are a failure or have let yourself or your family down: not at all 7. Trouble concentrating on things, such as reading the newspaper or watching television: not at all 8. Moving or speaking so slowly that other people could have noticed. Or the opposite - being so fidgety or restless that you have been moving around a lot more than usual: not at all 9. Thoughts that you would be better off or of hurting yourself in some way: not at all Total score: 0 Source: Developed by Drs. Atilio Loredo, Raymond Ann and colleagues, with an educational claudia from [employer]. Thrive Questionnaire Date Thrive assessed: 01/23/25 I am a: Patient What is your living situation today?: I have a steady place to live Within the past 12 months, did the food you bought not last and you didn't have the money to get more?: Never true Within the past 12 months, did you worry whether your food would run out before you got money to buy more?: Never true Do you have trouble paying for medicines?: No Do you have trouble getting transportation to medical appointments?: No Do you have trouble paying your heating and electricity bill?: No Do you have trouble taking care of your child, family member or friend?: No Do you have trouble with day-to-day activities such as bathing, preparing meals, shopping, managing finances, etc.?: No Are you currently unemployed and looking for a job?: No Are you interested in more education?: No Please select the resources that you would like help with: None THRIVE Score: 0 AUDIT C Alcohol Use Questionnaire (AUDIT-C) 1. How often do you have a drink containing alcohol?: Never 3. How often do you have six or more drinks on one occasion?: Never Total Score: 0 DILLON-7 AMB Questionnaire DILLON-7 Date DILLON - 7 assessed: 01/23/25 Feeling nervous, anxious, or on edge: 0 = Not at all Not being able to stop or control worryin = Not at all Worrying too much about different things: 0 = Not at all Trouble relaxin = Not at all Being so restless that it is hard to sit still: 0 = Not at all Becoming easily annoyed or irritable: 0 = Not at all Feeling afraid as if something awful might happen: 0 = Not at all Total DILLON-7 score (0-4 normal; 5-9 mild; 10-14 moderate; 15-21 severe): 0 Source: Developed by Drs. Atilio Loredo, Raymond Ann and colleagues, with an educational claudia from [employer]. Physical exam (Primary Care) Vital Signs: Last Vital Signs Temp 97.7 F 02/06/25 08:56 Pulse 82 02/06/25 08:56 Resp 14 02/06/25 08:56 BP 114/68 02/06/25 08:56 Pulse Ox 97 02/06/25 08:56 Oxygen Delivery Method Room Air 02/06/25 08:56 BMI result Body Mass Index 27.9 Tobacco/Smoking Status: Tobacco use Status Tobacco use date assessed 02/06/25 02/06/25 08:57 Patient Tobacco Use Status Never used Tobacco 02/06/25 08:57 PHQ-9: PHQ-9 Score PHQ-9: Total score 0 02/06/25 09:05 Thrive Assessment: Date of Thrive Assessment Date Thrive assessed 01/23/25 02/06/25 08:57 Coding Level of Care Code Est Pt Level 3 (11385) Complex EM visit Add On G2211 Diagnoses Rash R21 Assessment & Plan Assessment & Plan (1) Rash: Code(s): R21 - Rash and other nonspecific skin eruption Plan: History of Present Illness - The patient is a 79-year-old female presenting with a rash and medication management issues. - Rash: The patient experienced a rash that lasted about 5-1/2 days, which improved with the use of a prescribed cream and corn starch. - The rash was exacerbated by perspiration and improved with corn starch application. - - Social History Review of Systems - Dermatological: Reports rash that improved with cream and corn starch application. - General: Reports feeling good overall. Physical Exam General: Cooperative and healthy appearing Nutritional Appearance: Well nourished Orientation/consciousness: Patient oriented x3 Limitations: No limitations Head: Normal to inspection General: Appearance normal, both eyes and all related structures Neck: Normal visual inspection Chest: Normal palpation of entire chest wall Respiratory: Normal respiratory effort Neurology: Patient oriented x3 Results Plan 1. Rash - Continue using the prescribed cream until the rash resolves completely. - Keep the affected area dry and use corn starch as needed to prevent exacerbation. Discussion Notes I discussed with the patient the importance of continuing the prescribed cream for the rash until it resolves completely. We also talked about keeping the affected area dry and using corn starch to prevent exacerbation. Additionally, I will take over the prescription of the cardiovascular medication previously managed by the slubber hand. For diabetes management, we will update the prescription to accommodate the new test strips and meter as per insurance requ irements. Patient Instructions - Continue using the prescribed cream until the rash resolves completely. - Keep the affected area dry and use corn starch as needed. - Follow up with primary care physician for cardiovascular medication management. - Update diabetes supplies as per new insurance requirements.
--- OUTSIDE RECORDS SUMMARY | 2025-02-06 09:26 | XMS_ITS | Clinical Summary ---
Author Organization [facility] Address [address] [place] [id number] Phone Care Team Providers Care Shift Supervisor Name Role Phone Nikko Perrin MD Primary Care Provider [phone] Allergies No known active allergies Medications aspirin 81 mg chewable tablet 81 mg. Acti ve amLODIPine (NORVASC) 10 MG tablet Take 1 tablet by mouth every morning. 4 Active atorvastatin (LIPITOR) 80 MG tablet Take 80 mg by mouth daily. Active cephalexin (KEFLEX) 500 MG capsule Take 500 mg by mouth 3 (three) times a day. 4 Active diazePAM (VALIUM) 5 MG tablet Take 5 mg by mouth nightly at bedtime. Active fluticasone propionate (FLONASE) 50 mcg/actuation nasal spray 2 sprays by Nasal route daily. 4 Active therapeutic multivitamin tablet Take 1 tablet by mouth daily. Active calcium carbonate-vitamin D3 1,250 mg (500 mg elemental)-400 units per tablet Take 1 tablet by mouth daily. Active Active Problems Problem Noted Date Diagnosed Date Lesion of lip 09/29/2023 Family History Medical History Relation Comments Dementia Father Heart disease Mother Hypertension Mother Relation Status Comments Father Mother Social History Tobacco Use Types Packs/Day Years Used Date Smoking Tobacco: Never Smokeless Tobacco: Never Tobacco Cessation:Counseling Given: Not Answered Alcohol Use Standard Drinks/Week Comments Not Currently 0 (1 standard drink = 0.6 oz pur e alcohol) Education Answer Date Recorded Are you interested in more education? Not on michelet e 09/27/2023 Are you concerned about learning? Not on file 09/27/2023 No 09/27/2023 No 09/27/2023 Digital Access Answer Date Recorded No 09/27/2023 No 09/27/2023 Reliable internet access at home? Not on file 09/27/2023 Device with a working camera? Not on file Comments Unknown Sex and Gender Information Value Date Recorded Sex Assigned at Not on file Legal Sex Female 8:58 AM EDT Gender Identity Not on file Sexual Orientation Not on file Last Filed Vital Signs Vital Sign Reading Time Taken Comments Blood Pressure 113/62 09/29/2023 11:40 AM EDT Pulse 73 09/29/2023 11:40 AM EDT Temperature - - Respiratory Rate - - Oxygen Saturation - - Inhaled Oxygen Concentration - - Weight 73.8 kg (162 lb 9.6 oz) 09/29/2023 11:40 AM EDT Height 157.5 cm (5' 2 ) 09/29/2023 11:40 AM EDT Body Mass Index 29.74 09/29/2023 11:40 AM EDT Plan of Treatment Health Maintenance Due Date Last Done Comments Adult Td,Tdap Booster 1945 LIPID PANEL 1945 DEPRESSION SCREENING 1957 HEPATITIS C SCREENING 12/08/1963 SMOKING STATUS SCREENING (On ce After 26 Yrs) 12/08/1971 PNEUMOCOCCAL VACCINES (50+ y ears) (1 of 1 - PCV) 12/08/1995 ZOSTER VACCINES (1 of 2) 12/08/1995 OSTEOPOROSIS SCREENING INITI AL (ONE-TIME) 2010 RSV VACCINE (1 - 1-dose 75+ series) 2020 COVID-19 VACCINE (2023-2 5 season) 2024 HEPATITIS A VACCINES Aged Out No long er eligible based on patient's age to complete this topic HIB VACCINES Aged Out No longer eligi ble based on patient's age to complete this topic MENINGOCOCCAL VACCINES (ACWY) Aged Out No longer eligible based on patient's age to complete this topic MENINGOCOCCAL VACCINES (B) Aged Out N o longer eligible based on patient's age to complete this topic Medical Devices Not on file [place] [address] [place] [address] MEDICARE REPLACEMENT MEDICARE RE[place] [address] [place] [address] [address] [address] MEDICARE [place]PLACEMENT [place] [id number] [place] [address] MEDICARE REPLACEMENT [place] [id number] Care Teams Shift Supervisor Relationship Specialty Start Date End Date Nikko Perrin MD [address] [place] [address] PCP - General Internal Medicine 09/27/23 Additional Source Comments The information contained in this document represents components of the legal health record. It is not the complete legal health record.[facility]
--- OUTSIDE RECORDS SUMMARY | 2025-02-06 09:27 | XMS_ITS | Patient Health Record ---
Author Organization [facility] danish [place] Address [address] [facility] [place] [address] Care Team Providers Care Home Demonstrator Name Role Phone Manpreet Smith Primary Care Provider Nasreen Levy Unavailable [phone] Asher Zimmerman Unavailable [phone] Allergies No Known Allergies Reason For Referral No Information Medications Medication SIG (Take, Route, Frequency, Duration) Notes Start Date End Date Status Atorvastatin Calcium 80 MG 1 tablet Orally Once a day; Duration: 30 day(s) Active Aspirin 81 MG 1 tablet Orally Once a day Active Tolterodine Tartrate once a day Active Flonase PRN Active Ciclopirox Olamine 0.77 % 1 application to affected area Externally Twice a day to effected areas on feet; Duration: 30 days Active Ammonium Lactate 12 % 1 application Externally to affected areas of dry skin to feet except for between the toes Twice a day; Duration: 30 days Active oxyBUTYnin Chloride ER 10 MG 1 tablet Orally Once a day; Duration: 30 day(s) Active Valium 5 MG 1 tablet as needed Orally Once a day Active Tussin Cough PRN Not-Sami ing Immunizations Vaccine Route Administration Date Status Comme nts Influenza Unknown 04/18/2024 Administered Social History Tobacco Use: Social History Observation [...] Interpretation Negative Vital Signs Blood pressure diastolic 65 mm Hg 02/01/2025 Height 5 ft 2 in in 02/01/2025 Blood pressure systolic 122 mm Hg 02/01/2025 Weight 156 lbs 02/01/2025 BMI 28.53 kg/m2 02/01/2025 Procedures Procedure Date Ordered Date Performed Result Body Sit e 98141-BYPCNOU NAIL, 6 OR MORE 07/05/2024 N/A 89433-LGMXNEN NAIL, 6 OR MORE 11/09/2024 N/A 56300-TGFPRKP NAIL, 6 OR MORE 02/01/2025 N/A Encounters Encounter Location Date Provider Diagnosis [address] [address] 03/30/2024 Asher Zimmerman Pain in right toe(s) M79.674 ; Hallux valgus (acquired), right foot M20.11 ; Other hammer toe(s) (acquired), right foot M20.41 ; Localized edema R60.0 ; Tinea unguium B35.1 ; Pain in left toe(s) M79.675 ; Tinea pedis B35.3 ; Tailor's bunionette, left M21.622 and Tailor's bunionette, right M21.[address] [address] 07/05/2024 Nasreen Levy Xerosis of skin L85.3 ; Tinea unguium B35.1 ; Pain in right toe(s) M79.674 and Pain in left toe(s) M79.[address] [address] 11/09/2024 Nasreen Levy Pain in right toe(s) M79.674 ; Onychomycosis B35.1 and Pain in left toe(s) M79.[address] [address] 02/01/2025 Nasreen Levy Pain in right toe(s) M79.674 ; Onychomycosis B35.1 and Pain in left toe(s) M79.675 Assessments Encounter Date Diagnosis (ICD Code) Assessment Notes Treatment Notes Treatment Clinical Notes Section Notes 03/30/2024 Hallux valgus (acquired), right foot (ICD-10 - M20.11) 03/30/2024 Pain in right toe(s) (ICD-10 - M79.674) 07/05/2024 Xerosis of skin (ICD-10 - L85.3) 11/09/2024 Pain in right toe(s) (ICD-10 - M79.674) 02/01/2025 Pain in right toe(s) (ICD-10 - M79.674) 02/01/2025 Onychomycosis (ICD-10 - B35.1) 11/09/2024 Onychomycosis (ICD-10 - B35.1) 07/05/2024 Tinea unguium (ICD-10 - B35.1) 03/30/2024 Other hammer toe(s) (acquired), right foot (ICD-10 - M20.41) 07/05/2024 Pain in right toe(s) (ICD-10 - M79.674) 02/01/2025 Pain in left toe(s) (ICD-10 - M79.675) 11/09/2024 Pain in left toe(s) (ICD-10 - [...] X ray : Foot, right 3V 11/24/2022 14067-TSNFOXF NAIL, 6 OR MORE 07/05/2024 34450-EVWUHUT NAIL, 6 OR MORE 11/09/2024 15213-WDSENXA NAIL, 6 OR MORE 02/01/2025 74798-YZVTAJA SKIN/TISSUE 11/24/2022 Next Appt Details Provider Name:Nasreen montanez, 05/03/2025 03:00:00 PM, [address] [place], [phone], Insurance Providers Payer Name Payer Address Payer Phone Subscriber Number Group Number Insured Name Patient Relationship to Insured Coverage Start Date Coverage End Date [employer] Medicare [id number] [address] [address] [place] [address] [id number] [facility] Self - patient is the insured Medical (General) History Medical History History ICD Code Arthritis Cholesterol raynauds disease Poor circulation Measles Chicken pox Polycythemia vera Surgical History Surgery Date(Month/Year) tonsillectomy 194 Breast Surgery - left lumpectomy
== END 2025-02-06 09:34 | disposition home or self-care (01) ==
LOC: HO.HMCSH 08:59
PROVIDERS: PCP Internal Medicine; Visit Provider Internal Medicine
DX: R21 Rash and other nonspecific skin eruption (principal)

== ENCOUNTER → 2025-02-06 08:59 | Outpatient (BNVA) | payer MEDICARE, SELFPAY | PROVIDERS: PCP Internal Medicine; Visit Provider Internal Medicine | DX: R21 Rash and other nonspecific skin eruption (principal) | CPT/HCPCS: 99212 ==

== ENCOUNTER 2025-03-30 09:33 | Outpatient (REF) | payer MEDICARE, SELFPAY ==
--- NOTE | ~2025-03-30 | MM_ITS ---
EXAMINATION: DXA BONE DENSITY AXIAL HISTORY: Osteopenia TECHNIQUE: Cellvine Dual energy absorptiometry (DEXA) of the lumbar spine, total left hip, and femoral neck was performed. COMPARISON: Comparison is made with the prior examination dated 03/19/2023. FINDINGS: The bone mineral density of the lumbar spine is 0.890 g/cm2, corresponding to a T-score of -2.4, and a Z-score of -0.6. This is indicative of osteopenia. This represents a BMD change of 1.7% compared to the prior exam. This is not statistically significant. The bone mineral density of the left total hip is 0.755 g/cm2, corresponding to a T-score of -2.0, and a Z-score of 0.0. This is indicative of osteopenia. This represents a BMD change of 1.1% compared to the prior exam. This is not statistically significant. The bone mineral density of the left femoral neck is 0.716 g/cm2, corresponding to a T-score of -2.3, and a Z-score of -0.2. This is indicative of osteopenia. This represents a BMD change of -2.5% compared to the prior exam. FRACTURE RISK: The FRAX index suggests a ten year probability of major osteoporotic fracture of 58.6%, and of hip fracture 43.8%. MM/XR DEXA axial skeleton IMPRESSION: Based on bone mineral density, and according to World Health Organization (WHO) criteria, the diagnosis is consistent with osteopenia. Statistically, 68% of repeat scans fall within 1 SD (+/- 0.010 g/cm2 for AP spine L1-L4) and 1 SD (+/- 0.012 g/cm2 for femur total) FRAX is a trademark of the [employer]'s [employer] Met[employer] Bone Disease, a World Health Organization (WHO) Collaborating Center. Electronically signed by: Atilio Rahman MD 03/30/2025 10:41 AM EDT
--- NOTE | ~2025-03-30 | MM_ITS ---
EXAMINATION: MM SCREENING DIGITAL BREAST TOMOSYNTHESIS, BILATERAL CLINICAL INFORMATION: Screening. Asymptomatic. 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 COMPARISON: Mammography: Comparison is made with available priors TECHNIQUE: Digital breast mammography with tomosynthesis is performed in both the craniocaudal and mediolateral oblique views along with computer-aided detection (CAD). FINDINGS: The breasts are heterogeneously dense, which may obscure small masses (ACR BI-RADS breast composition Category c). Left lumpectomy changes are stable. There are no significant masses, abnormal calcifications, or other abnormalities. MM/MM tomosynthesis screening BI IMPRESSION: No mammographic evidence of malignancy. ASSESSMENT: BI-RADS BI-RADS 2 - Benign Findings RECOMMENDATION: Routine annual mammography screening. 1 year F/U This examination should not preclude the clinical evaluation of a suspicious palpable abnormality. This patient's information was entered into a reminder system with a target due date for their next mammogram. Electronically signed by: Jo Ann Main DO 04/03/2025 12:02 PM EDT
--- OUTSIDE RECORDS SUMMARY | 2025-03-30 10:40 | XMS_ITS | Patient Health Record ---
Author Organization [facility] [place] Address [address] [facility] [place] [address] Care Team Providers Care Deep Fat Fry Cook Name Role Phone LuisManpreet Primary Care Provider Nasreen Levy Unavailable [phone] Asher Zimmerman Unavailable [phone] Allergies No Known Allergies Reason For Referral No Information Medications Medication SIG (Take, Route, Frequency, Duration) Notes Start Date End Date Status oxyBUTYnin Chloride ER 10 MG 1 tablet Orally Once a day; Duration: 30 day(s) Active Valium 5 MG 1 tablet as needed Orally Once a day Active Atorvastatin Calcium 80 MG 1 tablet Orally Once a day; Duration: 30 day(s) Active Aspirin 81 MG 1 tablet Orally Once a day Active Tussin Cough PRN Not-Sami ing Ammonium Lactate 12 % 1 application Externally to affected areas of dry skin to feet except for between the toes Twice a day; Duration: 30 days Active Ciclopirox Olamine 0.77 % 1 application to affected area Externally Twice a day to effected areas on feet; Duration: 30 days Active Tolterodine Tartrate once a day Active Flonase PRN Active Immunizations Vaccine Route Administration Date Status Comme [...] ast year? No Points 0 Interpretation Negative Problems Problem Type SNOMED Code ICD Code Onset Dates Problem Status W/U Status Risk Notes Problem Acquired hallux valgus (28619580) Hallux valgus (acquired), right foot (M20.11) Active confirmed Problem Acquired hammer toe of right foot (8990867471327 105) Hammer toe of right foot (M20.41) Active confirmed Vital Signs Blood pressure diastolic 65 mm Hg 02/19/2025 Height 5 ft 2 in in 02/19/2025 Blood pressure systolic 126 mm Hg 02/19/2025 Weight 156 lbs 02/19/2025 BMI 28.53 kg/m2 02/19/2025 Procedures Procedure Date Ordered Date Performed Result Body Sit e 94311-LBUPNLK NAIL, 6 OR MORE 07/05/2024 N/A 42390-XXKEVEO NAIL, 6 OR MORE 11/09/2024 N/A 49640-MZCRJMT NAIL, 6 OR MORE 02/01/2025 N/A Encounters Encounter Location Date Provider Diagnosis [address] [address] 03/30/2024 Asher Zimmerman Pain in right toe(s) M79.674 ; Hallux valgus (acquired), right foot M20.11 ; Other hammer toe(s) (acquired), right foot M20.41 ; Localized edema R60.0 ; Tinea unguium B35.1 ; Pain in left toe(s) M79.675 ; Tinea pedis B35.3 ; Tailor's bunionette, left M21.622 and Tailor's bunionette, right M21.[address] [address] 07/05/2024 Nasreen Levy Xerosis of skin L85.3 ; Tinea unguium B35.1 ; Pain in right toe(s) M79.674 and Pain in left toe(s) M79.[address] [address] 11/09/2024 Nasreen Levy Pain in right toe(s) M79.674 ; Onychomycosis B35.1 and Pain in left toe(s) M79.[address] [address] 02/01/2025 Nasreen Levy Pain in right toe(s) M79.674 ; Onychomycosis B35.1 and Pain in left toe(s) M79.[address] [address] 02/19/2025 Nasreen Levy Pain in right foot M79.671 ; Pain in right ankle and joints of right foot M25.571 ; Bursitis of right foot M77.51 ; Hallux valgus (acquired), right foot M20.11 and Hammer toe of right foot M20.[address] [address] 02/19/2025 Nasreen Levy [address] [address] 02/16/2025 Nasreen Levy Assessments Encounter Date Diagnosis (ICD Code) Assessment Notes Treatment Notes Treatment Clinical Notes Section Notes 03/30/2024 Hallux valgus (acquired), right foot (ICD-10 - M20.11) 03/30/2024 Pain in right toe(s) (ICD-10 - M79.674) 07/05/2024 Xerosis of skin (ICD-10 - L85.3) 11/09/2024 Pain in right toe(s) (ICD-10 - M79.674) 02/19/2025 Pain in right ankle and joints of right foot (ICD-10 - M25.571) 02/19/2025 Pain in right foot (ICD-10 - M79.671) 02/01/2025 Pain in right toe(s) (ICD-10 - M79.674) 02/01/2025 Onychomycosis (ICD-10 - B35.1) 02/19/2025 Bursitis of right foot (ICD-10 - M77.51) 11/09/2024 Onychomycosis (ICD-10 - B35.1) 07/05/2024 Tinea unguium (ICD-10 - B35.1) 03/30/2024 Other hammer toe(s) (acquired), right foot (ICD-10 - M20.41) 07/05/2024 Pain in right toe(s) (ICD-10 - M79.674) 02/01/2025 Pain in left toe(s) (ICD-10 - M79.675) 11/09/2024 Pain in left toe(s) (ICD-10 - M79.675) 03/30/2024 Localized edema (ICD-10 - R60.0) 02/19/2025 Hallux valgus (acquired), right foot (ICD-10 - M20.11) 02/19/2025 Hammer toe of right foot (ICD-10 - M20.41) 07/05/2024 Pain in left toe(s) (ICD-10 - M79.675) 03/30/2024 Tinea unguium (ICD-10 - B35.1) 03/30/2024 Pain in left toe(s) (ICD-10 - M79.675) 03/30/2024 Tinea pedis (ICD-10 - B35.3) 03/30/2024 Tailor's bunionette, left (ICD-10 - M21.622) 03/30/2024 Tailor's bunionette, right (ICD-10 - M21.621) Plan Of Treatment Pending Test Test Name Order Date X ray : Foot, right 3V 11/24/2022 X ray : Foot, right 3V 02/19/2025 76864-BOIMWBR NAIL, 6 OR MORE 07/05/2024 68173-QCBYKYB NAIL, 6 OR MORE 11/09/2024 65437-QJZQQRH NAIL, 6 OR MORE 02/01/2025 26252-VIXQZGS SKIN/TISSUE 11/24/2022 Next Appt Details Provider Name:Nasreen montanez, 05/03/2025 03:00:00 PM, [address] [place] [address], [phone], Provider Name:Nasreen montanez, 05/10/2025 01:30:00 PM, [address] [place] [address], [phone], Provider Name:Nasreen Edouard montanez, 05/30/2025 08:45:00 AM, [address] [place] [address], [phone], Provider Name:Nasreen Nunn tarik, 06/04/2025 01:30:00 PM, [address] [place] [address], [phone], Provider Name:Nasreen Edouard montanez, 06/11/2025 01:30:00 PM, [address] [place] [address], [phone], Provider Name:Nasreen Edouard montanez, 06/25/2025 01:30:00 PM, [address] [place] [address], [phone], Insurance Providers Payer Name Payer Address Payer Phone Subscriber Number Group Number Insured Name Patient Relationship to Insured Coverage Start Date Coverage End Date [employer] Medicare [id number] [address] [address] [place] [address] [id number] [facility] Self - patient is the insured Medical (General) History Medical History History ICD Code Arthritis Cholesterol raynauds disease Poor circulation Measles Chicken pox Polycythemia vera Surgical History Surgery Date(Month/Year) tonsillectomy 194 Breast Surgery - left lumpectomy
== END 2025-03-30 09:34 | disposition home or self-care (01) ==
LOC: HO.MAMMO 09:33
PROVIDERS: PCP Internal Medicine; Visit Provider Internal Medicine
DX: Z12.31 Encounter for screening mammogram for malignant neoplasm of breast (principal); Z13.820 Encounter for screening for osteoporosis; M85.89 Other specified disorders of bone density and structure, multiple sites
CPT/HCPCS: 77063; 77067; 77080

== ENCOUNTER → 2025-03-30 10:00 | Outpatient (BNV) | payer MEDICARE, SELFPAY | PROVIDERS: PCP Internal Medicine; Visit Provider Radiology Diagnostic Radiology | DX: Z12.31 Encounter for screening mammogram for malignant neoplasm of breast (principal) | CPT/HCPCS: 77063; 77067; 77080 ==

== ENCOUNTER 2025-05-14 13:12 | Outpatient (AMB) | payer MEDICARE, SELFPAY ==
--- OUTSIDE RECORDS SUMMARY | 2025-05-10 09:30 | XMS_ITS ---
Author Organization [facility] [place] Address [address] [facility] [place] [address] Care Team Providers Care District Manager In Training Name Role Phone LuisManpreet Primary Care Provider [phone] Nasreen Levy [phone] Allergies No Known Allergies REASON FOR VISIT Foot pain Medications Medication SIG (Take, Route, Frequency, Duration) Notes Start Date End Date Status Aspirin 81 MG 1 tablet Orally Once a day Active Tussin Cough PRN Not-Sami ing Flonase PRN Active Tolterodine Tartrate once a day Active Ciclopirox Olamine 0.77 % 1 application to affected area Externally Twice a day to effected areas on feet; Duration: 30 days Active Atorvastatin Calcium 80 MG 1 tablet [...] Orally Once a day; Duration: 30 day(s) Not-Taking Social History Tobacco Use: Social History Observation [...] Signs Height 5 ft 2 in in 05/10/2025 Weight 156 lbs 05/10/2025 BMI 28.53 kg/m2 05/10/2025 Blood pressure systolic 128 mm Hg 05/10/20 25 Blood pressure diastolic 65 mm Hg 025 Encounters Encounter Location Date Provider Diagnosis [facility] [address] [address] 05/10/2025 Nasreen Levy Pain in right foot M79.671 ; Pain in right ankle and joints of right foot M25.571 ; Bursitis of right foot M77.51 ; Hallux valgus (acquired), right foot M20.11 and Hammer toe of right foot M20.41 Assessments Encounter Date Diagnosis (ICD Code) Assessment Notes Treatment Notes Treatment Clinical Notes Section Notes 05/10/2025 Pain in right foot (ICD-10 - M79.671) 05/10/2025 Pain in right ankle and joints of right foot (ICD-10 - M25.571) 05/10/2025 Bursitis of right foot (ICD-10 - M77.51) 05/10/2025 Hallux valgus (acquired), right foot (ICD-10 - M20.11) 05/10/2025 Hammer toe of right foot (ICD-10 - M20.41) Plan Of Treatment Pending Test Test Name Order Date X ray : Foot, right 3V 05/10/2025 Next Appt Details Follow Up: prn, Reason: post op Provider Name:Nasreen montanez, 05/30/2025 07:30:00 AM, [address] [place] [address], [phone], Provider Name:Nasreen montanez, 06/04/2025 01:30:00 PM, [address] [place] [address], [phone], Provider Name:Nasreen montanez, 06/11/2025 01:30:00 PM, [address] [place] [address], [phone], Provider Name:Nasreen montanez, 06/25/2025 01:30:00 PM, [address] [place] [address], [phone], Provider Name:Nasreen Nunn tarik, 08/09/2025 09:15:00 AM, [address] [facility], [place], [phone], Progress Notes * NATALIEJaswinder RANGELille ADOB: (79 yo F)Acc No.[id number]:05/10/2025 Progress Note Patient: Damaris HUGHES A Provider: Karan Levy DPM :1945 A ge:79 Y S ex:Female Date:05/10/2025 Address:[address] [place] [address], [id number] Pcp:Manpreet Smith Subjective: * Chief Complaints: * F oot pain * HPI: F oot Pain: Location: I nside, Great toe joint, RIGHT. Duration: s everal years. Course: leslie oliva. Aggravated: a ny pressure. Treatments: r est/alter normal daily activity, , gel cushions, bracing, straps, wraps, padding. * ROS: G eneral/Constitutional: Nausea d enies. V omiting d enies. H mk Thirst d enies. L oss appetite d enies. C hills d enies. F atigue d enies.?Fever d enies. N ight Sweats d enies. U nexplained weight loss d enies. U nexplained weight gain d enies. H EENTM: Dentures d enies. D izziness d enies. G lasses/contacts a dmits. R etinopathy d enies. B lurred/double vision d enies. T MJ?denies. D ischarge/drainage d enies. I mplants d enies. S ore throat d enies. D ental implants d enies. H keven of hearing d enies. D ifficulty chewing/swallowing/speaking d enies. N ose bleeds d enies. S ore mouth d enies. ? R espiratory: On Oxygen d enies. P neumonia/pleurisy d enies.?Bronchitis d enies. E mphysema d enies. C oughing d enies. C ough blood?denies. S hortness of breath d enies. W heezing d enies. C ardiovascular: Pacemaker d enies. M VENEER JOINTER RETURNER d enies. W PW d enies. C HF d enies. H eart attack d enies. S eptal defect d enies. R apid beat d enies. C hest pain d enies. A trial Fib. d enies. M urmur/Palpitations d enies. G astrointestinal: Hemorrhoids d enies. S tomach/Abdominal pain d enies. D ark blood stool d enies. I rritable bowel d enies. C onstipation d enies. D iarrhea d enies. H ematology: Swelling d enies. C lots d enies. V aricose Veins d enies. B ruising d enies. B leeding problem d enies. G enitourinary: Blood urine d enies. F requent/Painfu/urination/bladder control d enies. K idney stones d enies. I nfection (UTI) d enies. N ephropathy d enies. s ex trans dis (STD) d enies. P rostate d enies. M usculoskeletal: Hammertoes d enies. B unions a dmits. B ack Pain d enies. M uscle Cramps/ Resting d enies. M uscle cramps / walking d enies.?Generalized aches and pains a dmits. W eakness d enies. I nteg.: Boo d enies. S cars d enies. C orns/calluses?admits. I ngrown nails d enies. P ainful nails d enies. O pen Sores d enies. R ashes d enies. N eurologic: Difficulty sleeping a dmits. B rain disorder d enies. N umbness d enies. B alance trouble d enies. C onfusion d enies. F ainting/blackouts d enies. T ingling d enies. T remors d enies. * Medical History: * Surgical History: t onsillectomy 1948Breast Surgery - left lumpectomy * Hospitalization/Major Diagno stic Procedure: D enies Past Hospitalization * Family History: M other: , poor circulation, cancer, diagnosed with Other malignant neoplasm of unspecified site, Unspecified essential hypertension, Other specified conditions influencing health status, Family history of arthritis. F ather: , stroke, diagnosed with Unspecified heart disease, Other specified conditions influencing health status. * Social History: T obacco Use: T obacco use other than smoking A re you an other tobacco user? N o Tobacco Control (Standard) T obacco use: N onsmoker A dditional Findings: Tobacco non-user C urrent nonsmoker D rugs/Alcohol: D rugs H ave you used drugs other than those for medical reasons in the past 12 months? N o M iscellaneous: C affeine: no, frequency:, 2-3 cups per day decaff coffee. Children: yes, 2. Exercise: yes, walking, housework, swimming. Marital status: . 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 D rug/Alcohol: A MAVERICK-C (Standard) D id you have a drink containing alcohol in the past year? N o P oints 0 I nterpretation N egative * Medications: T akingCiclopirox Olamine 0.77 % Cream 1 application to affected area Externally Twice a day to effected areas on feet Flonase , Notes to Pharmacist: PRNTolterodine Tartrate , Notes to Pharmacist: once a dayAspirin 81 MG Tablet Chewable 1 tablet Orally Once a day Atorvastatin Calcium 80 MG Tablet 1 tablet Orally Once a day Valium 5 MG Tablet 1 tablet as needed Orally Once a day Ammonium Lactate 12 % Cream 1 application Externally to affected areas of dry skin to feet except for between the toes Twice a day Taking Ciclopirox Olamine 0.77 % Cream 1 application to affected area Externally Twice a day to effected areas on feet Taking Flonase , Notes to Pharmacist: PRNTaking Tolterodine Tartrate , Notes to Pharmacist: once a dayTaking Aspirin 81 MG Tablet Chewable 1 tablet Orally Once a day Taking Atorvastatin Calcium 80 MG Tablet 1 tablet Orally Once a day Taking Valium 5 MG Tablet 1 tablet as needed Orally Once a day Taking Ammonium Lactate 12 % Cream 1 application Externally to affected areas of dry skin to feet except for between the toes Twice a day Not-Taking/PRNoxyBUTYnin Chloride ER 10 MG Tablet Extended Release 24 Hour 1 tablet Orally Once a day Tussin Cough , Notes to Pharmacist: PRNMedication List reviewed and reconciled with the patientNot-Taking/PRN oxyBUTYnin Chloride ER 10 MG Tablet Extended Release 24 Hour 1 tablet Orally Once a day Not-Taking/PRN Tussin Cough , Notes to Pharmacist: PRNMedication List reviewed and reconciled with the patient * Allergies: N .K.D.A.yes[Allergies Verified] Objective: * Vitals: H t: 5 ft 2 in, Wt:156, BMI: 28.53, Shoe size:7W, BP:128/65mm Hg, Wt-k.76 kg. * Examination: O rthopedic: MUSCLE STRENGTH: 5 /5 all groups in a symmetrical fashion , B/L. BUNION: M edially prominent 1st MPJ,(+) Pain on palpation,inflammation present medially,Lateral tracking 1st MPJ incompletely reducible, Crepitus present with ROM, Pain assoc with 1st MPJ ROM, throughout ROM testing, Limited 1st MPJ Dorsal ROM, RIGHT. DIGITAL DEFORMITIES: C rossover second digit with significant contracture at PIPJ and MPJ, RIGHT. FOOTWEAR EVALUATION: s hoe gear properties exacerbate patients foot/toe deformity. X -Rays - IMAGING REPORT: Clinical Indication(s): Evaluate Biomechanical Deformity.? Views: A P, LAT, MO, RIGHT Taken by trained P odiatric Assistant Manager ( E F). Findings: n ormal bone and soft tissue density consistent for patients age and sex. HAV: i ncreased First Intermetatarsal angle and Hallux Abductus angle consistent with Bunion deformity noted, hypertrophy of the dorsal and medial 1st MTH without subchondral cyst, asymmetric joint space narrowing. Fracture: N egative fractures identified. ? N eurological: SENSORY: N eurological exam reveals intact sensorium, pain sensation normal, vibration sensation intact, pinprick sensation is normal in the lower extremities, Pt denies, anesthesia, burning, paresthesia, tingling, B/L. TINEL'S COMPRESSION: Negative, Saphenous nerve distribution, Right. BABINSKI REFLEX: a bsent. V ascular: DP PULSES (B): 2 /4, B/L. PT PULSES (B): 2 /4, B/L. CAPILLARY FILL TIME: 3 secs. per digit, B/L. TROPHIC CONDITION-TEXTURE/ELASTICITY/TURGOR/HAIR GROWTH (B):?normal, B/L. TEMPERTURE GRADIENT (C): w arm to cool, proximal to distal, B/L. PIGMENTATION: n ormal, B/L. EDEMA (C): 2/4, Right, Ankle(s), Leg(s). TELANGECTASIA: a bsent. VARICOSITIES: a bsent. G eneral Examination: GENERAL APPEARANCE: p leasant, alert, well nourished, well developed, well hydrated, with good attention to hygene/body habitus, and in no acute distress. ORIENTED: p erson,place, and time. Assessment: * Assessment: 1. P ain in right ankle and joints of right foot - M25.571 2 . P ain in right foot - M79.671 (Primary) 3 . B ursitis of right foot - M77.51 ?4. H allux valgus (acquired), right foot - M20.11 S pecify :Chronic problem, Worse (4) 5 . H ammer toe of right foot - M20.41 S pecify :Chronic problem, Worse (4) Plan: * Treatment: * Procedure Codes: * Preventive Medicine: Counseling: D iscussion: - 14: Office or other outpatient visit for the evaluation and management of an established patient, which required a medically appropriate history and/or examination and MODERATE level of DECISION MAKING for: 1 OR MORE CHRONIC PROBLEM(S) THATS WORSENING, 2 STABLE CHRONIC PROBLEMS, A NEWLY DIAGNOSED PROBLEM WITH UNCERTAIN PROGNOSIS, AN ACUTE COMPLICATED INJURY WITH MULTIPLE TREATMENT OPTIONS, OR AN ACUTE PROBLEM WITH ACCOMPANYING SYSTEMIC SYMPTOMS, THAT POSE(S) A MODERATE RISK OF MORBIDITY. THIS CONDITION MAY ALSO INCLUDE RX DRUG MANAGEMENT, OR A DECISON FOR MINOR SURGERY. The visit on the day of the [...] have encouraged the patient to call the office. D igital Treatment: H V - I explained to the patient the risks/benefits of all the different treatment options for their pain including: No treatment at all, Rest, Ice, New/supportive/wider/deeper Shoe gear, Digital Padding/Strapping/Taping/Bracing/Gel protective sleeves, Foot/Ankle AFO Bracing, Stretching exercises, Deep Tissue Massage, Arch support/shoe inserts with splay metatarsal padding, and Custom orthoses. I insisted that any digital devices be removed daily and not worn overnight for safety. The patient is to carefully examine the toes daily for any skin irritation while using any splinting or padding device. The advantages and disadvantages of each option were discussed and the patients questions re: shoe gear, padding, custom vs prefabricated inserts, activity level, and consistency in home treatment regimens for optimal success were answered to their verbally confirmed satisfaction. D iscussion for Bunion sx: Rene fernandez consented to Dave bunionectomy and second digit hammertoe correction with or without Kwire fixation procedure. The risks were discussed at [facility] with the patient including, but not limited to: pain, swelling, bleeding, scarring, numbness, infection, delayed/non healing, floppy/unstable/shorthened toe, recurrence, failure of the procedure, overcorrection leading to medial positioned toe, recurrence, need for further surgery, as well as the possibility for loss of the toe itself. We discussed the use of local anesthesia, and the usual post-op course for healing. No guarentees were given. The patient verbally indicated a full understanding of the above conversation, and any other of their questions were answered to their satisfaction. The patient would like to procede with the proposed surgical treatment.? O rthotics: I explained to the patient the benefits of OT use. I explained that orthoses are medically necessary to decrease the foot pain through proper mechanical control, support of their foot, cushion the forefoot by supplementing the soft tissue, possibly delay of the progression of the bunion deformity, possibly prevent surgery. P .R.I.C.E.: T he patient was counseled on the use of P.R.I.C.E. and NSAIDS (if well tolerated) to aid in the recovery from their painful condition , Recommended Topical analgesics including Biofreeze/Aspercream/Voltaren gel. S hoe Gear Counseling: T he patient and I reviewed the types of shoes they should be wearing. My recommendation included obtaining a well-fitted shoe with a good supportive, non-foldable nor twistable sole, plenty of toe/room for the forefoot, and proper arch support. Based on todays examination, I recommended the patient look for new shoes, by having their feet professionally measured. We discussed that generally the best time of the day for a shoe fitting is the afternoon. Different shoes types and brands to best match the patients occupation and vocation were discussed. Specific brand selection will be up to the patient, their individual foot condition/deformities, and fit. The patient and I reviewed the standard new shoe break in period by wearing them for a few hours a day while checking for redness or sores as wear time is increased. The patient verbally confirmed to understanding the information discussed. Screening/Special Tests: F all Risk Screening: N o falls in the past year F ALLS: Screening for Future Fall Risk Have you had any falls with injury in the past year? N o * Follow Up: p rn (Reason: post op) * Images: * Sign off status: Completed true * Provider: Karan Levy DPM Date: Generated for Mario cartagena/Anamaria/Jose Angelitting on: 04:49 PM EDT History and Physical Notes * HPI (History of Present Illness) Category Sub-Category Detail Notes Category Not es Foot Pain Location: Inside, Great toe joint, RIG HT Duration: several years Course: worse Aggravated: any pressure Treatments: rest/alter normal da katia activity, , gel cushions, bracing, straps, wraps, padding Examination Category Sub-Category Detail Notes Category Not es Neurological SENSORY: Neurological exa m reveals intact sensorium, pain sensation normal, vibration sensation intact, pinprick sensation is normal in the lower extremities, Pt denies, anesthesia, burning, paresthesia, tingling, B/L BABINSKI REFLEX: absent TINEL'S COMPRESSION: Negative, Saphenous nerve distribution, Right Orthopedic BUNION: Medially promine nt 1st MPJ, (+) Pain on palpation, inflammation present medially, Lateral tracking 1st MPJ incompletely reducible, Crepitus present with ROM, Pain assoc with 1st MPJ ROM, throughout ROM testing, Limited 1st MPJ Dorsal ROM, RIGHT FOOTWEAR EVALUATION: shoe gear propertie s exacerbate patients foot/toe deformity DIGITAL DEFORMITIES: Crossover second di git with significant contracture at PIPJ and MPJ, RIGHT MUSCLE STRENGTH: 5/5 all groups in a [...] TELANGECTASIA: absent VARICOSITIES: absent PIGMENTATION: normal, B/L X-Rays - IMAGING REPORT Findings: normal b one and soft tissue density consistent for patients age and sex Fracture: Negative fractures i dentified HAV: increased First Inte rmetatarsal angle and Hallux Abductus angle consistent with Bunion deformity noted, hypertrophy of the dorsal and medial 1st MTH without subchondral cyst, asymmetric joint space narrowing Views: AP, LAT, MO, RIGHT T aken by trained Podiatric Assistant Manager ( EF) Clinical Indication(s): Evaluate Biomech anical Deformity
[2025-05-14 13:28] VITALS: BP 138/80; PULSE 82; RESP 14; TEMP 36.4; O2SAT 99; BMI 28.1
--- NOTE | 2025-05-14 13:28 | A.OFFPC_ITS ---
Vital Signs 05/14/25 13:28 Height 5 ft 1.02 in Weight 149 lb BMI 28.1 BP 138/80 Respiration 14 Pulse 82 Pulse Source Pulse Oximeter Temp 97.6 F Temp Source Temporal Artery Scan Pulse Oximetry (%) 99 Oxygen Delivery Method Room Air Intake Visit Reasons: Pre-op Bunionectomy Pile Driving Supervisor Required: No Accompanied by: Self / Same As Patient Allergies No Known Allergies Allergy (Unverified 05/14/25 13:29) Tobacco use date assessed: 05/14/25 Dental Screening Dental Screen Date: 01/23/25 [facility] Medical History Hyperlipidemia Breast CA Leg swelling Surgical History History of colonoscopy (~02/21/15) History of lumpectomy Family History Maternal Aunt Breast cancer Maternal Aunt Bone cancer Breast cancer Social History Household Members: Spouse Housing: House Alcohol intake: current Alcohol intake frequency: does not drink Patient Tobacco Use Status: Never used Tobacco service: No Current occupational status: retired Cognitive needs: No Hearing needs: No Vision needs: Yes (reading glasses) Questionnaire PHQ-9 Over the last 2 weeks, how often have you been bothered by any of the following problems? 1. Little interest or pleasure in doing things: not at all 2. Feeling down, depressed, or hopeless: not at all 3. Trouble falling or staying asleep, or sleeping too much: not at all 4. Feeling tired or having little energy: not at all 5. Poor appetite or overeating: not at all 6. Feeling bad about yourself - or that you are a failure or have let yourself or your family down: not at all 7. Trouble concentrating on things, such as reading the newspaper or watching television: not at all 8. Moving or speaking so slowly that other people could have noticed. Or the opposite - being so fidgety or restless that you have been moving around a lot more than usual: not at all 9. Thoughts that you would be better off or of hurting yourself in some way: not at all Total score: 0 Source: Developed by Drs. Atilio Loredo, Raymond Ann and colleagues, with an educational claudia from [employer]. Thrive Questionnaire Date Thrive assessed: 01/23/25 I am a: Patient What is your living situation today?: I have a steady place to live Within the past 12 months, did the food you bought not last and you didn't have the money to get more?: Never true Within the past 12 months, did you worry whether your food would run out before you got money to buy more?: Never true Do you have trouble paying for medicines?: No Do you have trouble getting transportation to medical appointments?: No Do you have trouble paying your heating and electricity bill?: No Do you have trouble taking care of your child, family member or friend?: No Do you have trouble with day-to-day activities such as bathing, preparing meals, shopping, managing finances, etc.?: No Are you currently unemployed and looking for a job?: No Are you interested in more education?: No Please select the resources that you would like help with: None THRIVE Score: 0 AUDIT C Alcohol Use Questionnaire (AUDIT-C) 1. How often do you have a drink containing alcohol?: Never 3. How often do you have six or more drinks on one occasion?: Never Total Score: 0 DILLON-7 AMB Questionnaire DILLON-7 Date DILLON - 7 assessed: 01/23/25 Feeling nervous, anxious, or on edge: 0 = Not at all Not being able to stop or control worryin = Not at all Worrying too much about different things: 0 = Not at all Trouble relaxin = Not at all Being so restless that it is hard to sit still: 0 = Not at all Becoming easily annoyed or irritable: 0 = Not at all Feeling afraid as if something awful might happen: 0 = Not at all Total DILLON-7 score (0-4 normal; 5-9 mild; 10-14 moderate; 15-21 severe): 0 Source: Developed by Alycia Knox Kurt Kroenke and colleagues, with an educational claudia from [employer]. Physical exam (Primary Care) Vital Signs: Last Vital Signs Temp 97.6 F 05/14/25 13:28 Pulse 82 05/14/25 13:28 Resp 14 05/14/25 13:28 BP 138/80 05/14/25 13:28 Pulse Ox 99 05/14/25 13:28 Oxygen Delivery Method Room Air 05/14/25 13:28 BMI result Body Mass Index 28.1 Tobacco/Smoking Status: Tobacco use Status Tobacco use date assessed 05/14/25 05/14/25 13:40 Patient Tobacco Use Status Never used Tobacco 05/14/25 13:40 PHQ-9: PHQ-9 Score PHQ-9: Total score 0 05/14/25 13:40 Thrive Assessment: Date of Thrive Assessment Date Thrive assessed 01/23/25 05/14/25 13:40 Office Procedures EKG Details: NSR. Proceed to surgery [id number], Complete Coding Level of Care Code Est Pt Level 4 (09498) Complex EM visit Add On G2211 Diagnoses Pre-op examination Z01.818 CPT Codes EKG - CPT: 12192-Fxvakiqgvwvlbsdzi, Complete ([id number]) Assessment & Plan Assessment & Plan (1) Pre-op examination: Code(s): Z01.818 - Encounter for other preprocedural examination Plan: History of Present Illness - The patient is a 79-year-old female presenting for preoperative clearance for foot surgery and management of chronic conditions. The patient reports having Raynaud's disease, which causes her hands to feel cold, although she wore gloves to mitigate this. - Breast cancer: The patient underwent a lumpectomy and radiation therapy for breast cancer, with no anesthesia complications reported. - Hypertension and Hyperlipidemia: The patient is on amlodipine and a statin for hypertension and hyperlipidemia, respectively. - Anxiety: The patient takes Valium 5 mg nightly for anxiety management. - Bladder dysfunction: The patient uses tolterodine for bladder dysfunction management. - Bunion: The patient is scheduled for surgery on her right foot to address a bunion and issues with two toes. - Cataracts: The patient had cataract surgery previously, performed by Dr. Mo, with no complications reported. - Preventative care: The patient received a flu shot and COVID-19 vaccination last year. Social History Review of Systems - Cardiovascular: Denies chest pain, orthopnea, or syncope. - Respiratory: Reports dyspnea due to fluid in lungs, denies cough or wheezing. - Neurological: Denies headaches, dizziness, or balance issues. - Musculoskeletal: Reports cold hands due to renal disease. Physical Exam General: Cooperative and healthy appearing Nutritional Appearance: Well nourished Orientation/consciousness: Patient oriented x3 Limitations: No limitations Head: Normal to inspection General: Appearance normal, both eyes and all related structures Neck: Normal visual inspection Chest: Normal palpation of entire chest wall Respiratory: Patient reports fluid in lungs causing pain, fatigue, and pressure. ormal respiratory effort Neurology: Patient oriented x3. Reports Reynaud's disease, causing hands to be usually freezing. Results Plan - Schedule and perform EKG as part of preoperative clearance. - Order blood work to assess current health status. - Continue current medications including amlodipine, aspirin, statin, Valium, Flonase, and tolterodine. - Follow up with electric mule operator regarding 's aortic stenosis and potential stent procedure. - Plan for foot surgery on May 30, with follow-up appointments post- surgery. Proceed to surgery after reviewing EKG and BW Discussion Notes I discussed the need for preoperative clearance, including an EKG and blood work, to ensure the patient's readiness for foot surgery. We reviewed her current medications and confirmed continuation. I advised on the importance of follow-up with the electric mule operator for her 's aortic stenosis and potential stent procedure. We also confirmed the foot surgery date and discussed post- operative follow-up appointments. Patient Instructions - Complete scheduled EKG and blood work before surgery. - Continue taking all prescribed medications as directed. - Attend follow-up appointments with the electric mule operator and post-surgery. Orders: Orders Complete Blood Count no Diff Today D75.1 - Secondary polycythemia Thyroid Stimulating Hormone Today D75.1 - Secondary polycythemia AMB EKG-In Office Today Z01.810 - Encounter for preprocedural cardiovascular examination Basic Metabolic Panel Today D75.1 - Secondary polycythemia Lipid Panel Today D75.1 - Secondary polycythemia Liver Panel Today D75.1 - Secondary polycythemia UA and rflx microscopic Today D75.1 - Secondary polycythemia
--- OUTSIDE RECORDS SUMMARY | 2025-05-14 16:49 | XMS_ITS | Clinical Summary ---
Author Organization [facility] Address [address] [place] [address] Phone Care Team Providers Care Ms Sql Developer Name Role Phone Nikko Perrin MD Primary Care Provider +1- [phone] Allergies No known active allergies Medications aspirin [...] VACCINE (1 - 1-dose 75+ series) 2020 INFLUENZA VACCINE (#1) 2025 COVID-19 VACCINE ( - 2024-2 6 season) 2025 HEPATITIS A VACCINES Aged Out No long [...] topic Medical Devices Not on file Insurance MEDICARE [place] [address] [place] [address] [place] [address] [place] [address] [place] [address] [place] [address] [place] [address] [place] [address] MEDICARE REPLACEMENT [place] [id number] [place] [address] MEDICARE REPLACEMENT Care Teams Ms Sql Developer Relationship Specialty Start Date End Date Nikko Perrin MD [address] [place] [address] PCP - General Internal Medicine 09/27/23 Additional Source Comments The information contained in this document represents components of the legal health record. It is not the complete legal health record.[facility]
--- OUTSIDE RECORDS SUMMARY | 2025-05-14 16:49 | XMS_ITS | Patient Health Record ---
Author Organization [facility] [place] Address [address] [facility] [place] [address] Care Team Providers Care Home School Coordinator Name Role Phone Luis, Kartik Primary Care Provider [phone] Nasreen Levy Unavailable [phone] Allergies No Known Allergies Reason For Referral [...] Once a day; Duration: 30 day(s) Not-Taking Flonase PRN Active Tolterodine Tartrate once a day Active Ciclopirox Olamine 0.77 % 1 application to affected area Externally Twice a day to effected areas on feet; Duration: 30 days Active Immunizations Vaccine Route Administration Date Status [...] Status Risk Notes Problem Acquired hallux valgus (92741873) Hallux valgus (acquired), right foot (M20.11) Active confirmed Problem Acquired hammer toe of right foot (7082718757794 105) Hammer toe of right foot (M20.41) Active confirmed Vital Signs Blood pressure diastolic 65 mm Hg 05/10/2025 Height 5 ft 2 in in 05/10/2025 Blood pressure systolic 128 mm Hg 05/10/2025 Weight 156 lbs 05/10/2025 BMI 28.53 kg/m2 05/10/2025 Procedures Procedure Date Ordered Date Performed Result Body Sit e 28939-CWLRPQP NAIL, 6 OR MORE 07/05/2024 N/A 85876-KCAZLFM NAIL, OR MORE 11/09/2024 N/A 59394-JLNMGVG NAIL, 6 OR MORE 02/01/2025 N/A 32902-GXEMRBJ NAIL, 6 OR MORE 05/03/2025 N/A Encounters Encounter Location Date Provider Diagnosis [address] [address] 07/05/2024 Nasreen Levy Xerosis of skin L85.3 ; Tinea unguium B35.1 ; Pain in right toe(s) M79.674 and Pain in left toe(s) M79.[address] [address] 11/09/2024 Nasreen Levy Pain in right toe(s) M79.674 ; Onychomycosis B35.1 and Pain in left toe(s) M79.[address] [address] 02/01/2025 Nasreen Levy Pain in right toe(s) M79.674 ; Onychomycosis B35.1 and Pain in left toe(s) M79.[address] [address] 02/19/2025 Nasreen Levy Pain in right foot M79.671 ; Pain in right ankle and joints of right foot M25.571 ; Bursitis of right foot M77.51 ; Hallux valgus (acquired), right foot M20.11 and Hammer toe of right foot M20.[address] [address] 05/03/2025 Nasreen Levy Pain in right toe(s) M79.674 ; Onychomycosis B35.1 and Pain in left toe(s) M79.[address] [address] 05/10/2025 Nasreen Levy Pain in right foot M79.671 ; Pain in right ankle and joints of right foot M25.571 ; Bursitis of right foot M77.51 ; Hallux valgus (acquired), right foot M20.11 and Hammer toe of right foot M20.[address] [address] 02/19/2025 Nasreen Levy [address] [address] 02/16/2025 Nasreen Levy Assessments Encounter Date Diagnosis (ICD Code) Assessment Notes Treatment Notes Treatment Clinical Notes Section Notes 07/05/2024 Xerosis of skin (ICD-10 - L85.3) 11/09/2024 Pain in right toe(s) (ICD-10 - M79.674) 02/19/2025 Pain in right ankle and joints of right foot (ICD-10 - M25.571) 02/19/2025 Pain in right foot (ICD-10 - M79.671) 02/01/2025 Pain in right toe(s) (ICD-10 - M79.674) 05/10/2025 Pain in right ankle and joints of right foot (ICD-10 - M25.571) 05/10/2025 Pain in right foot (ICD-10 - M79.671) 05/03/2025 Pain in right toe(s) (ICD-10 - M79.674) 05/03/2025 Onychomycosis (ICD-10 - B35.1) 05/10/2025 Bursitis of right foot (ICD-10 - M77.51) 02/01/2025 Onychomycosis (ICD-10 - B35.1) 02/19/2025 Bursitis of right foot (ICD-10 - M77.51) 11/09/2024 Onychomycosis (ICD-10 - B35.1) 07/05/2024 Tinea unguium (ICD-10 - B35.1) 07/05/2024 Pain in right toe(s) (ICD-10 - M79.674) 02/01/2025 Pain in left toe(s) (ICD-10 - M79.675) 11/09/2024 Pain in left toe(s) (ICD-10 - M79.675) 05/03/2025 Pain in left toe(s) (ICD-10 - M79.675) 02/19/2025 Hallux valgus (acquired), right foot (ICD-10 - M20.11) 05/10/2025 Hallux valgus (acquired), right foot (ICD-10 - M20.11) 05/10/2025 Hammer toe of right foot (ICD-10 - M20.41) 02/19/2025 Hammer toe of right foot (ICD-10 - M20.41) 07/05/2024 Pain in left toe(s) (ICD-10 - M79.675) Plan Of Treatment Pending Test Test Name Order Date X ray : Foot, right 3V 11/24/2022 X ray : Foot, right 3V 02/19/2025 X ray : Foot, right 3V 05/10/2025 [id number] NAIL, 6 OR MORE 05/03/2025 06474-AQYKUZY NAIL, 6 OR MORE 07/05/2024 19946-NZICLKO NAIL, 6 OR MORE 11/09/2024 46949-OSGLNML NAIL, 6 OR MORE 02/01/2025 17057-GMAAHRW SKIN/TISSUE 11/24/2022 Next Appt Details Provider Name:Nasreen montanez, 05/30/2025 07:30:00 AM, [address] [place] [address], [phone], Provider Name:Nasreen montanez, 06/04/2025 01:30:00 PM, [address] [place] [address], [phone], Provider Name:Nasreen Edouard montanez, 06/11/2025 01:30:00 PM, [address] [place] [address], [phone], Provider Name:Nasreen montanez, 06/25/2025 01:30:00 PM, [address] [place] [address], [phone], Provider Name:Nasreen montanez, 08/09/2025 09:15:00 AM, [address] [place] [address], [phone], Insurance Providers Payer Name Payer Address Payer Phone Subscriber Number Group Number Insured Name Patient Relationship to Insured Coverage Start Date Coverage End Date [employer] Medicare [id number] [address] [address] [place] [address] [id number] [employer] Self - patient is the insured Medical (General) History Medical History History ICD Code Arthritis Cholesterol raynauds disease Poor circulation Measles Chicken pox Polycythemia vera Surgical History Surgery Date(Month/Year) tonsillectomy 194 Breast Surgery - left lumpectomy
== END 2025-05-14 14:18 | disposition home or self-care (01) ==
LOC: HO.HMCSH 13:12
PROVIDERS: PCP Internal Medicine; Visit Provider Internal Medicine
DX: Z01.818 Encounter for other preprocedural examination (principal)

== ENCOUNTER → 2025-05-14 13:12 | Outpatient (BNVA) | payer MEDICARE, SELFPAY | PROVIDERS: PCP Internal Medicine; Visit Provider Internal Medicine | DX: Z01.818 Encounter for other preprocedural examination (principal); I10 Essential (primary) hypertension; E78.5 Hyperlipidemia, unspecified; F41.9 Anxiety disorder, unspecified; N31.9 Neuromuscular dysfunction of bladder, unspecified; D75.1 Secondary polycythemia | CPT/HCPCS: 93005; 99212 ==

== ENCOUNTER 2025-05-15 06:43 | Outpatient (REF) | payer MEDICARE, SELFPAY ==
--- OUTSIDE RECORDS SUMMARY | 2025-05-10 09:30 | XMS_ITS ---
Author Organization [facility] [place] Address [address] [facility] [place] [address] Care Team Providers Care Beverage Sales Consultant Name Role Phone LuisManpreet Primary Care Provider [phone] Nasreen Levy [phone] Allergies No Known Allergies REASON FOR VISIT [...] 025 Encounters Encounter Location Date Provider Diagnosis [facility] [address] [address] 05/10/2025 Nasreen Levy Pain in right foot [...] op Provider Name:Nasreen montanez, 05/30/2025 07:30:00 AM, [address] [place] [address], [phone], Provider Name:Nasreen montanez, 06/04/2025 01:30:00 PM, [address] [place] [address], [phone], Provider Name:Nasreen montanez, 06/11/2025 01:30:00 PM, [address] [place] [address], [phone], Provider Name:Nasreen montanez, 06/25/2025 01:30:00 PM, [address] [place] [address], [phone], Provider Name:Nasreen Nunn tarik, 08/09/2025 09:15:00 AM, [address] [facility], [facility] [place], [phone], Progress Notes * NATALIEJaswinder RANGELille ADOB: (79 yo F)Acc No.[id number]:05/10/2025 Progress Note Patient: Damaris HUGHES A Provider: Karan Levy DPM :1945 A ge:79 Y S ex:Female Date:05/10/2025 Address:[address] [place] [address], [id number] Pcp:Manpreet Smith Subjective: * Chief Complaints: * [...] enies. C ardiovascular: Pacemaker d enies. M RADIOLOGIST DIAGNOSTIC d enies. W PW d enies. C [...] MO, RIGHT Taken by trained P odiatric Market Investigator ( E F). Findings: n ormal bone [...] fixation procedure. The risks were discussed at [facility] with the patient including, but not limited [...] Karan Levy DPM Date: Generated for Mario cartagena/Anamaria/Heather on: 06:47 AM EDT History and Physical Notes * [...] MO, RIGHT T aken by trained Podiatric Market Investigator ( EF) Clinical Indication(s): Evaluate Biomech anical Deformity
--- OUTSIDE RECORDS SUMMARY | 2025-05-15 06:47 | XMS_ITS | Clinical Summary ---
Author Organization [facility] Address [address] [place] [address] Phone Care Team Providers Care Film Flat Inspector Name Role Phone Nikko Perrin MD Primary Care Provider +1- [phone] Allergies No known active allergies Medications aspirin [...] Devices Not on file Insurance [place] [place] [address] [place] [address] [place] [place] [address] [place] [address] MEDICARE REPLACEMENT [place] [id number] [place] [address] MEDICARE REPLACEMENT Care Teams Film Flat Inspector Relationship Specialty Start Date End Date Nikko Perrin MD [address] [place] [address] PCP - General Internal Medicine 09/27/23 Additional Source Comments The information contained in this document represents components of the legal health record. It is not the complete legal health record.[facility]
--- OUTSIDE RECORDS SUMMARY | 2025-05-15 06:47 | XMS_ITS | Patient Health Record ---
Author Organization [facility]los [facility]ber[facility] [place] Address [address] [facility] [place] [address] Care Team Providers Care Offset Plate Maker Name Role Phone Luis, Kartik Primary Care Provider Nasreen Levy Unavailable [phone] Allergies No Known Allergies Reason For Referral [...] Status Risk Notes Problem Acquired hallux valgus (06641470) Hallux valgus (acquired), right foot (M20.11) Active confirmed Problem Acquired hammer toe of right foot (9854643572965 105) Hammer toe of right foot (M20.41) Active confirmed Vital Signs Blood pressure diastolic 65 mm Hg 05/10/2025 Height 5 ft 2 in in 05/10/2025 Blood pressure systolic 128 mm Hg 05/10/2025 Weight 156 lbs 05/10/2025 BMI 28.53 kg/m2 05/10/2025 Procedures Procedure Date Ordered Date Performed Result Body Sit e 87198-[id number] NAIL, 6 OR MORE 07/05/2024 N/A 02852-LIFEKBU NAIL, OR MORE 11/09/2024 N/A 43240-RTNVUTP NAIL, 6 OR MORE 02/01/2025 N/A 28158-PXYMRYQ NAIL, 6 OR MORE 05/03/2025 N/A Encounters Encounter Location Date Provider Diagnosis [address] [address] 07/05/2024 Nasreen Levy Xerosis of skin L85.3 ; Tinea unguium B35.1 ; Pain in right toe(s) M79.674 and Pain in left toe(s) M79.[address] [address] 11/09/2024 Nasreen Levy Pain in right toe(s) M79.674 ; Onychomycosis B35.1 and Pain in left toe(s) M79.[address] [address] 02/01/2025 Nasreen Levy Pain in right toe(s) M79.674 ; Onychomycosis B35.1 and Pain in left toe(s) M79.[address] [address] 02/19/2025 Nasreen Levy Pain in right foot M79.671 ; Pain in right ankle and joints of right foot M25.571 ; Bursitis of right foot M77.51 ; Hallux valgus (acquired), right foot M20.11 and Hammer toe of right foot M20.[address] [address] 05/03/2025 Nasreen Levy Pain in right toe(s) M79.674 ; Onychomycosis B35.1 and Pain in left toe(s) M79.[address] [address] 05/10/2025 Nasreen Levy Pain in right foot M79.671 ; Pain in right ankle and joints of right foot M25.571 ; Bursitis of right foot M77.51 ; Hallux valgus (acquired), right foot M20.11 and Hammer toe of right foot M20.[address] [address] 02/19/2025 Nasreen Levy [address] [address] 02/16/2025 Nasreen Levy Assessments Encounter Date Diagnosis [...] X ray : Foot, right 3V 05/10/2025 67631-[id number] NAIL, 6 OR MORE 05/03/2025 79060-AXCPNIC NAIL, 6 OR MORE 07/05/2024 27882-[id number] NAIL, 6 OR MORE 11/09/2024 95752-ECJEKWH NAIL, 6 OR MORE 02/01/2025 46045-LIWNRWI SKIN/TISSUE 11/24/2022 Next Appt Details Provider Name:Nasreen montanez, 05/30/2025 07:30:00 AM, [address] [place] [address], [phone], Provider Name:Nasreen montanez, 06/04/2025 01:30:00 PM, [address] [place] [address], [phone], Provider Name:Nasreen Edouard montanez, 06/11/2025 01:30:00 PM, [address] [place] [address], [phone], Provider Name:Nasreen montanez, 06/25/2025 01:30:00 PM, [address] [place] [address], [phone], Provider Name:Nasreen montanez, 08/09/2025 09:15:00 AM, [address] [place] [address], [phone], Insurance Providers Payer Name Payer Address Payer Phone Subscriber Number Group Number Insured Name Patient Relationship to Insured Coverage Start Date Coverage End Date [employer] Medicare [id number] [address] [address] [place] [address] [id number] [facility] - patient is the insured Medical (General) History Medical History History ICD Code Arthritis Cholesterol raynauds disease Poor circulation Measles Chicken pox Polycythemia vera Surgical History Surgery Date(Month/Year) tonsillectomy 194 Breast Surgery - left lumpectomy
[2025-05-15 10:02] LABS: Appearance Urine Clear; Glucose Urine UA Negative (Negative); PH 7.0 (5.0-9.0); Specific Gravity - Urine 1.015 (1.005-1.025); UMIC TRIGGER UA YES
[2025-05-15 10:05] LABS: Hematocrit 40.7 % (37.0-47.0); Hemoglobin 13.4 g/dl (12.0-16.0); Mean Corpuscular HGB Conc 32.9 g/dl (31.0-35.0); Mean Corpuscular Hemoglobin 29.3 pg (27.0-33.0); Mean Corpuscular Volume 89.1 fL (80.0-98.0); NRBC Abs Auto 0.000 X10*3/uL (0.0-0.012); NRBC Pct Auto 0.0 /100WBC (0.0-0.2); Platelet Count 319 X10*3/uL (160-400); Red Blood Count 4.57 X10*6/uL (4.20-5.50); White Blood Count 7.7 X10*3/uL (4.8-10.8)
[2025-05-15 10:29] LABS: Alanine Aminotransferase 26 U/L (0-31); Albumin Level 4.2 g/dL (3.5-5.0); Alkaline Phosphatase 104 U/L (39-117); Anion Gap 10 (12-20); Aspartate Amino Transferase 27 U/L (5-31); Blood Urea Nitrogen 17 mg/dL (9-16); Calcium 9.1 mg/dL (8.4-10.2); Carbon Dioxide 27 mmol/L (22-29); Chloride 110 mmol/L (96-108); Cholesterol 191 mg/dL (<200); Estimated Glomerular Filt Rate > 60; HDL Cholesterol 59 mg/dL (>40); Potassium 4.2 mmol/L (3.3-5.1); Sodium 143 mmol/L (135-145); Total Protein 6.8 g/dL (6.5-8.0); Triglycerides 141 mg/dL (<150)
[2025-05-15 10:50] LABS: Thyroid Stimulating Hormone 3.48 uIU/mL (0.32-4.0)
== END 2025-05-15 06:44 | disposition home or self-care (01) ==
LOC: HO.HMGCLDS 06:43
PROVIDERS: PCP Internal Medicine; Visit Provider Internal Medicine
DX: D75.1 Secondary polycythemia (principal); Z13.6 Encounter for screening for cardiovascular disorders
CPT/HCPCS: 36415; 80048; 80061; 80076; 81001; 81003; 84443; 85027